=== PATIENT | female | born 1955 | race Caucasian/White ===

== ENCOUNTER → 2016-12-29 | Outpatient (CLI) | payer MEDICAID ==
--- NOTE | 2016-12-29 14:57 | BD ---
EXAMINATION TYPE: MG DEXA axial skeleton. DATE OF EXAM: 12/29/2016 2:46 PM COMPARISON: 09.29.2013 DEXA bone scan. CLINICAL HISTORY: C50.411 BREAST CANCER Z79.890 POST MENOPAUSAL WITH HRT Height: 63.5 Weight: 173 FRAX RISK QUESTIONS: Alcohol (3 or more units per day): NO Family History (Parent hip fracture): NO Glucocorticoids (More than 3mos): YES (Ex: prednisone, prednisolone, methylprednisolone, dexamethasone, and hydrocortisone). History of Fracture in Adulthood: NO Secondary Osteoporosis: NO 1. Type 1 Diabetes: NO 2. Hyperthyroidism: NO 3. Menopause before 45: YES 4. Malnutrition: NO 5. Chronic liver disease: YES, ABNORMAL LIVER FUNCTIONS Rheumatoid Arthritis: NO Current Tobacco Use: YES RISK FACTORS HISTORY OF: Family History of Osteoporosis: NOT SURE Smoke tobacco: YES, 1 PAC WEEKLY Drink Alcohol: SOCIAL Active: YES Diet low in dairy products/other sources of calcium: NO Postmenopausal woman: LATE 30'S Take estrogen and/or progesterone medications: TOOK PREMPRO FOR APPROX. 3-4 YRS...BUT NONE NOW Lost more than 2 inches in height since high school: YES Adrenal Insufficiency: NO MEDICATIONS: Prednisone or other steroids: ZYRTEC D How Long: FOR YRS Additional Medications: HX OF RADIATION, AREMIDIX, CALCIUM WITH VIT D, ATIVAN PRN, Additional History: HX OF RT BREAST CANCER, 7 YRS AGO, ARTHRITIS. EXAM MEASUREMENTS: Bone mineral densitometry was performed using the [employer] System. Bone mineral density as measured about the Lumbar spine is: ----- L1-L4(G/cm2): 1.445 T Score Values are as follows: ----- L1: 1.2 ----- L2: 2.0 ----- L3: 2.7 ----- L4: 2.5 ----- L1-L4: 2.2 Bone mineral density has: Decreased -1.5% since study of: 09.29.2013 Bone mineral density about the R hip (g/cm2): 0.971 Bone mineral density about the L hip (g/cm2): 1.071 T Score values are as follows: -----R Neck: -0.7 -----L Neck: -0.5 -----R Intertrochanter: -0.6 -----L Intertrochanter: 0.3 Bone mineral density has: Decreased -2.4% since study of: 09.29.2013 FRAX %'S: 6.9% CHANCE OF A MAJOR OSTEOPOROTIC FX AND A 0.6% FOR A HIP FX.....PROBABILITY OF FX IN 10 YRS TIME IMPRESSION: Normal (Values between +1 and -1 indicate normal bone mass FOR BOTH OF HER SCANS....BILAT HIPS AND LUMBAR SPINE) NOTE: T-SCORE=SD OF THE YOUNG ADULT MEAN.
== END | disposition home or self-care (01) ==
LOC: RADBDWWP 14:06
PROVIDERS: ATTEND Internal Medicine Hematology & Oncology
DX: Z03.89 Encounter for observation for other suspected diseases and conditions ruled out (principal); C50.411 Malignant neoplasm of upper-outer quadrant of right female breast; N95.1 Menopausal and female climacteric states; Z79.890 Hormone replacement therapy
CPT/HCPCS: 77080

== ENCOUNTER → 2017-02-10 | Outpatient (CLI) | payer MEDICAID ==
[2017-02-10 07:26] LABS: Basophils % (A) 1 %; CH 32.1; CHCM 33.7; Eosinophils # (A) 0.3 k/uL (0-0.7); Eosinophils % (A) 6 %; HCT 44.1 % (34.0-46.0); HDW 2.46; HGB 14.8 gm/dL (11.4-16.0); Luc # (Auto) 0.08; Luc % (Auto) 2; Lymphocytes # (A) 1.5 k/uL (1.0-4.8); Lymphocytes % (A) 31 %; MCH 32.1 pg (25.0-35.0); MCHC 33.5 g/dL (31.0-37.0); MCV 95.7 fL (80.0-100.0); Mean Platelet Volume 7.9; Monocytes # (A) 0.2 k/uL (0-1.0); Monocytes % (A) 5 %; Neutrophils # (A) 2.7 k/uL (1.3-7.7); Neutrophils % (A) 56 %; RBC 4.61 m/uL (3.80-5.40); RDW 12.8 % (11.5-15.5); WBC 4.8 k/uL (3.8-10.6); WBC (Perox) 4.82
[2017-02-10 07:37] LABS: ALT 57 U/L (9-52); AST 39 U/L (14-36); Alkaline Phosphatase 52 U/L (38-126); Anion Gap 7 mmol/L; Blood Urea Nitrogen 23 mg/dL (7-17); Calcium 9.9 mg/dL (8.4-10.2); Carbon Dioxide 29 mmol/L (22-30); Chloride 106 mmol/L (98-107); Cholesterol 198 mg/dL (<200); Glucose 96 mg/dL (74-99); HDL Cholesterol 87 mg/dL (40-60); Non-African American GFR(MDRD) >60 (>60 ml/min/1.73 sqM); Sodium 142 mmol/L (137-145); Total Bilirubin 1.1 mg/dL (0.2-1.3); Total Protein 7.4 g/dL (6.3-8.2); Triglycerides 80 mg/dL (<150)
[2017-02-10 13:00] LABS: Hemoglobin A1C 5.3 % (4.2-6.1)
== END | disposition home or self-care (01) ==
LOC: LABWHC1 06:39
PROVIDERS: ATTEND Family Medicine
DX: Z00.00 Encounter for general adult medical examination without abnormal findings (principal); F41.1 Generalized anxiety disorder; M19.90 Unspecified osteoarthritis, unspecified site
CPT/HCPCS: 36415; 80053; 80061; 83036; 84439; 84443; 85025

== ENCOUNTER → 2017-06-18 | Outpatient (CLI) | payer MEDICAID ==
--- NOTE | 2017-06-19 06:50 | MM ---
Reason for exam: additional evaluation requested from prior study. Last mammogram was performed 1 year ago. History: Patient is postmenopausal, has history of breast cancer at age 53, history of other cancer, and is nulliparous. Family history of breast cancer in paternal aunt. Malignant right breast needle localzation of the right breast, May 11, 2009. Malignant right mammotome panel of the right breast, April 30, 2009. Radiation therapy of the right breast, 2008. Benign stereotactic core biopsy of the left breast, December 24, 1998. Took estrogen for 9 years 2 months beginning at age 44. Took progesterone for 9 years 2 months beginning at age 44. Taking antineoplastic for 8 years beginning at age 53. Physical Findings: Nurse Summary: 1cm nodule in the right breast at 12 o'clock and 11 o'clock at scar (nurse mj). MG 3D Diag Mammo W/Cad DAISY Bilateral CC and MLO view(s) were taken. Prior study comparison: June 03, 2016, bilateral MG 3d diag mammo w/cad DAISY. May 29, 2015, bilateral MG diagnostic mammo w CAD DAISY. The breast tissue is heterogeneously dense. This may lower the sensitivity of mammography. Stable benign calcifications. There is no discrete abnormality including area of concern. Stable lumpectomy changes in the right breast. These results were verbally communicated with the patient and result sheet given to the patient on 06/18/17. ASSESSMENT: Incomplete: need additional imaging evaluation, BI-RAD 0 RECOMMENDATION: Ultrasound of the right breast. Manage patient on a clinical basis.
--- NOTE | 2017-06-19 06:53 | USB ---
Reason for exam: additional evaluation requested from abnormal screening. History: Patient is postmenopausal, has history of breast cancer at age 53, history of other cancer, and is nulliparous. Family history of breast cancer in paternal aunt. Malignant right breast needle localzation of the right breast, May 11, 2009. Malignant right mammotome panel of the right breast, April 30, 2009. Radiation therapy of the right breast, 2008. Benign stereotactic core biopsy of the left breast, December 24, 1998. Took estrogen for 9 years 2 months beginning at age 44. Took progesterone for 9 years 2 months beginning at age 44. Taking antineoplastic for 8 years beginning at age 53. US Breast Limited RT Technologist: Sherita Tate Right breast ultrasound demonstrates a 0.7 x 0.5 x 0.4cm oval, hyperechoic, calcification at BB at 11 o'clock and a 0.4 x 0.2 x 0.4cm oval, cystic lesion at 11 o'clock. These results were verbally communicated with the patient and result sheet given to the patient on 06/18/17. ASSESSMENT: Probably benign, BI-RAD 3 RECOMMENDATION: Ultrasound of the right breast in 6 months. Manage patient on a clinical basis.
== END | disposition home or self-care (01) ==
LOC: RADMAMWWP 14:33
PROVIDERS: ATTEND Internal Medicine Hematology & Oncology
DX: R92.8 Other abnormal and inconclusive findings on diagnostic imaging of breast (principal); Z85.3 Personal history of malignant neoplasm of breast
CPT/HCPCS: 76642; G0204; G0279

== ENCOUNTER → 2017-10-19 | Outpatient (CLI) | payer MEDICAID ==
--- NOTE | 2017-10-19 07:37 | XR ---
EXAMINATION TYPE: XR pelvis AP view DATE OF EXAM: 10/19/2017 COMPARISON: Left hip radiographs 05/30/2010 HISTORY: 62-year-old female with lumbar pain extending down the left leg FINDINGS: Degenerative subarticular sclerosis at both SI joints. There is subchondral sclerosis along the bilat eral acetabular roofs with marginal spurring but relative maintenance of weightbearing hip joint spac e on both sides. No acute fracture or dislocation seen. IMPRESSION: Mild bilateral hip osteoarthrosis. Additional degenerative changes at the SI joints. No acute osseous abnormality seen.
--- NOTE | 2017-10-19 07:40 | XR ---
EXAMINATION TYPE: XR lumbosacral spine min 4V DATE OF EXAM: 10/19/2017 COMPARISON: NONE HISTORY: 62-year-old female lumbar pain extending down the left leg TECHNIQUE: 5 views FINDINGS: 5 lumbar type vertebral bodies. No pars interarticularis defect seen. Marked hypertrophic facet arthropathy throughout the lumbar spine. There is trace grade 1 anterolisth esis at L4-L5. Otherwise, alignment is maintained and vertebral body heights are preserved. Mild disc interspace narrowing at various levels with a endplate spondylosis greatest at T11-T12 and L2-L3. IMPRESSION: 1. Prominent hypertrophic facet arthropathy throughout. Trace grade 1 anterolisthesis at L4-L5. 2. Mild to moderate degenerative disc disease.
== END | disposition home or self-care (01) ==
LOC: RADXRMAIN 06:41
PROVIDERS: ATTEND Orthopaedic Surgery Orthopaedic Surgery of the Spine
DX: M43.16 Spondylolisthesis, lumbar region (principal); M51.36 Other intervertebral disc degeneration, lumbar region; M46.96 Unspecified inflammatory spondylopathy, lumbar region; M16.0 Bilateral primary osteoarthritis of hip; M53.3 Sacrococcygeal disorders, not elsewhere classified
CPT/HCPCS: 72110; 72170

== ENCOUNTER → 2017-10-29 | Outpatient (CLI) | payer MEDICAID ==
--- NOTE | 2017-10-29 08:36 | MR ---
EXAMINATION TYPE: MR lumbar spine wo con DATE OF EXAM: 10/29/2017 COMPARISON: Plain film 10/19/2017 HISTORY: Low back pain / Radiculopathy TECHNIQUE: Multiplanar, multisequence images of the lumbar spine were acquired. L1-L2: There are facet arthropathy changes. No evident disc herniation or significant foraminal encro achment. L2-L3: Posterior broad-based disc bulge causes mild anterior mass effect on the thecal sac. Facet art hropathy with hypertrophy ligamentum flavum encroaches on the lateral recesses. No significant centra l canal stenosis. Right pedicle of L2 shows a focus of intermediate signal which is indeterminate marisol suring approximately 11 mm. L3-L4: Hypertrophic changes of the facet results in a trefoil appearance of the thecal sac resulting in moderate to severe central canal stenosis, there is no significant foraminal encroachment. Posteri or broad-based disc bulge contributes to cause the spinal stenosis and is somewhat eccentric towards the left. L4-L5: Facet arthropathy with hypertrophy ligamentum flavum encroaches on the lateral recesses. No si gnificant central stenosis or foraminal encroachment. Minimal posterior broad-based disc bulge causes only slight anterior mass effect on the thecal sac. L5-S1: Facet arthropathy with hypertrophy of the ligamentum flavum noted. No significant central fabio l stenosis, foraminal encroachment, there is a minimal posterior broad-based disc bulge causes only s light anterior mass effect on the thecal sac. Lumbar segments are intact. No paraspinal masses are identified. Conus medullaris has a normal appe arance. There is no spondylolysis. Lumbar vertebral bodies show preserved height. Minimal anterolisth esis grade 1 L4-5. Loss of disc height and signal at the intervertebral levels especially at L2-3, L3 -4, L4-5, there is endplate discogenic marrow signal change. IMPRESSION: Degenerative disc disease, facet arthropathy, spinal stenosis greatest at L3-4. Indeterminate signal posterior vertebral body towards the right pedicle L2, bone scan or contrast-enhanced exam may be of benefit for further evaluation, follow-up suggested.
== END | disposition home or self-care (01) ==
LOC: RADMRIMAIN 07:02
PROVIDERS: ATTEND Orthopaedic Surgery Orthopaedic Surgery of the Spine
DX: M48.061 Spinal stenosis, lumbar region without neurogenic claudication (principal); M51.16 Intervertebral disc disorders with radiculopathy, lumbar region; M46.96 Unspecified inflammatory spondylopathy, lumbar region; M47.26 Other spondylosis with radiculopathy, lumbar region; M43.16 Spondylolisthesis, lumbar region; M53.3 Sacrococcygeal disorders, not elsewhere classified
CPT/HCPCS: 72148

== ENCOUNTER → 2017-11-10 | Outpatient (CLI) | payer MEDICAID ==
[2017-11-10 11:33] VITALS: BP 142/88; PULSE 70; RESP 18
--- NOTE | 2017-11-10 12:41 | P.HPIM ---
History of Present Illness H&P Date: 11/10/17 Chief Complaint: low back and LLE pain This is a 62-year-old patient referred by Dr. Mcclain for chronic pain in low back and LLE. Patient has been taking medications from primary care physician including [place] and Motrin medications with some relief. Patient denies adverse drug effects from medications. Patient also denies new-onset weakness, bowel/bladder incontinence, or any other signs or symptoms of cauda equina syndrome. There are no signs of acute intoxication, and no indications of medication diversion or overuse. Patient notes that pain worsens significantly with walking and sitting for extended periods of time and improves with standing, and medication. Patient has used several types of medications for pain, including NSAIDS, OPIOIDS, TRAMADOL. Patient HAS NOT had surgery. Patient HAS NOT had injections previously. Patient HAS had physical therapy recently. In addition to above, 13-point review of systems is also negative for chest pain , shortness of breath, changes in vision, changes in hearing, new onset weakness , abdominal pain, diarrhea, extreme fatigue, malaise, fever, skin changes, homicidal or suicidal ideation, or bowel or bladder incontinence. Vital Signs: Reviewed in EMR Gen: WDWN, AAOx3, NAD HEENT: NCAT, EOMI, hearing grossly normal Pulm: resp unlabored Abd: soft, NT, ND Neck: supple, trachea midline ROM in flexion lumbar spine: reduced ROM in extension lumbar spine: reduced Lumbar paravertebral tenderness: + Facet loading: + L >> R SI joint tenderness: mild + L side Donald's test: neg Straight leg raise: + LLE Neuro: CN II-XII grossly intact, muscle strength lower extremities PRESERVED Past Medical History Past Medical History: Cancer, Osteoarthritis (OA) Additional Past Medical History / Comment(s): rt breast ca radiation tx History of Any Multi-Drug Resistant Organisms: None Reported Additional Past Surgical History / Comment(s): lt shoulder repair,rt breast lumpectomy-later hematoma removed,rt carpel tunnel Past Anesthesia/Blood Transfusion Reactions: No Reported Reaction Past Psychological History: Anxiety Smoking Status: Current every day smoker Past Alcohol Use History: Occasional Additional Past Alcohol Use History / Comment(s): smokes approx 8 cigarettes per week, started smoking at 17 Past Drug Use History: None Reported - Past Family History Mother Family Medical History: Cancer, Diabetes Mellitus Father Family Medical History: Congestive Heart Failure (CHF) Additional Family Medical History / Comment(s): heart problems Medications and Allergies Home Medications Medication Instructions Recorded Confirmed Type Anastrozole [Arimidex] 1 mg PO DAILY 06/09/16 11/10/17 History Calcium Carbonate/Vitamin D3 1 each PO DAILY 06/09/16 11/10/17 History [Calcium 600-Vit D3 800 Tab] Cetirizine HCl/Pseudoephedrine 1 each PO DAILY 06/09/16 11/10/17 History [Zyrtec-D Tablet] LORazepam [Lorazepam] 1 mg PO BID PRN 06/09/16 11/10/17 History HYDROcodone/APAP 7.5-325MG [[place] 1 tab PO Q6H 11/10/17 11/10/17 History 7.5-325] traMADol HCl [Ultram] 1 tab PO TID 11/10/17 11/10/17 History Allergies Allergy/AdvReac Type Severity Reaction Status Date / Time codeine AdvReac Nausea Verified 11/10/17 11:22 Physical Exam Vitals: Vital Signs Pulse Resp BP Pulse Ox 11/10/17 11:26 70 18 142/88 99 Intake and Output 11/09/17 11/10/17 11/10/17 22:59 06:59 14:59 Other: Weight 171 kg Patient Weight 11/11/17 06:59 Weight 171 kg Results Comments: MRI lumbar spine without contrast demonstrates a posterior broad-based disc bulge at the L2-L3 level causing mild anterior mass effect on the thecal sac. There is facet arthropathy with hypertrophy and ligamentum flavum encroaching on the lateral recesses. The L3-L4 level there are hypertrophic changes of the facet resulting in a tree for repairs with thecal sac resulting in moderate to severe central canal stenosis with no significant foraminal encroachment. There is a posterior broad-based disc bulge contributing to cause spinal stenosis that is eccentric somewhat was a left. At the L4-L5 level there is a facet arthropathy with ligamentum flavum encroaching on the lateral recesses. At the L5-S1 level there is facet arthropathy with hypertrophy of ligamentum flavum noted. There is also an object of indeterminate signal posterior vertebral body towards the right pedicle of L2 thus measuring approximately 11 mm. Assessment and Plan (1) Lumbar spinal stenosis Current Visit: Yes Status: Chronic Code(s): M48.061 - SPINAL STENOSIS, LUMBAR REGION WITHOUT NEUROGENIC CODIE SNOMED Code(s): 41628493 (2) Lumbar spondylosis with myelopathy Current Visit: Yes Status: Chronic Code(s): M47.16 - OTHER SPONDYLOSIS WITH MYELOPATHY, LUMBAR REGION SNOMED Code(s): 43495031 (3) History of breast cancer Current Visit: Yes Status: Chronic Code(s): Z85.3 - PERSONAL HISTORY OF MALIGNANT NEOPLASM OF BREAST SNOMED Code(s): 895905434 Plan: 1. Explanation: Opioid and psychological risk scores were reviewed. Diagnoses , prognoses, and multiple treatment options including but not limited to physical therapy, interventional therapies, adjuvant medical therapies, narcotic medication therapies, and surgery were discussed with the patient and all questions were answered to the patient's satisfaction. 2. Opioid agreement: no opioids prescribed today 3. Counseling: The patient was counseled extensively on SMOKING CESSATION, BODY MASS INDEX, EXERCISE. Specifically, the patient was instructed regarding the importance of smoking cessation, weight control, and exercise in the context of both chronic pain and overall health. 4. Procedures: LESI series, L3-L4 if possible; consider lumbar MBB if limited relief 5. Consultations: none at this time 6. Investigations: none 7. Medications: none prescribed 8. Disposition: f/u for procedure as scheduled PQRS measures: 1-Patient's medications are documented in the chart. 2-Tobacco use is positive, counseling given 3-Patient has not had a pneumococcal vaccine. 4-Advanced care planning discussed, patient unable to give. 5-Opioid contract NOT signed with the patient. 6-Pain positive, follow-up visit or procedure scheduled 7-Patient's blood pressure measured and documented, and patient will follow up with the primary care due to hypertension. 8-Patient's weight was measured, and body mass index ABOVE the normal limits, and counseling was done. Patient instructed to follow up with PCP. 9-Patient WAS NOT identified as an unhealthy alcohol user. Time with Patient: Greater than 30
== END ==
LOC: PNWHC3 11:15
DX: G89.29 Other chronic pain (principal); M48.061 Spinal stenosis, lumbar region without neurogenic claudication; M47.16 Other spondylosis with myelopathy, lumbar region; F17.209 Nicotine dependence, unspecified, with unspecified nicotine-induced disorders; Z85.3 Personal history of malignant neoplasm of breast; Z88.5 Allergy status to narcotic agent; Z79.891 Long term (current) use of opiate analgesic; Z79.899 Other long term (current) drug therapy; Z88.6 Allergy status to analgesic agent; Z88.8 Allergy status to other drugs, medicaments and biological substances
CPT/HCPCS: 99211

== ENCOUNTER 2017-11-11 09:01 | Day surgery (SDC) | payer MEDICAID ==
[~2017-11-11 09:01] MED LIST: LACTATED RINGERS 1,000 ML IV ONE
[2017-11-11 09:55] VITALS: RESP 16; TEMP 97.8
[2017-11-11] MEDS ORDERED: LIDOCAINE 1% 20 ML VIAL (10MG/ML) FOR IV START INTRADERMA ONE (10:01)
--- NOTE | 2017-11-11 10:26 | P.PCN ---
Date of Procedure: 11/11/17 Procedure(s) Performed: PREOPERATIVE DIAGNOSIS: 1- Lumbar Degenerative Disc Diseases 2-Lumbar spondylosis with Facet arthropathy without myelopathy. 3-lumbar spinal stenosis. POSTOPERATIVE DIAGNOSIS: 1-Lumber Degenerative Disc Diseases 2-Lumbar spondylosis with Facet arthropathy without myelopathy. 3-lumbar spinal stenosis. PROCEDURE 1. Lumbar epidural steroid injection under fluoroscopic guidance at the L3-4 level. 2. Lumbar epidurogram. ANESTHESIA: Local with 1% lidocaine 3 ml and , moderate sedation with intravenous Versed 2 mg ,and fentanyle 100 Mcg EBL: Minimal PROCEDURE INDICATION: The patient with low back pain and radiculitis symptoms unresponsive to conservative treatment. Fluoroscopy was used to optimize visualization of the needle placement and to maximize safety. PROCEDURE DESCRIPTION / TECHNIQUE: The patient was seen and identified in the preoperative area. Risks, benefits , complications including but not limited to infections ,bleeding ,allergic reaction to the medications ,nerve damage and not complete pain releife , and alternatives were discussed with the patient. The patient agreed to proceed with the procedure and signed the consent. IV was started, and vital signs were stable. Patient was taken to the OR and time out was completed. The patient was placed in the prone position on procedure table and a pillow was placed under the abdomen to reduce lumbar lordosis. The lumbosacral area was prepped and draped in the usual sterile fashion.ere closely monitored during the procedure. Conscious sedation was used during the procedure to decrease patients anxiety. Vital signs was monitered during the entire procedure. Using anterior-posterior fluoroscopy, the L3-4 interlaminar space was identified and the skin over this site was marked and then infiltrated with 1% lidocaine subcutaneously. Subsequently, a 20-gauge Tuohy epidural needle was inserted and advanced toward the epidural space using the ``Loss of resistance technique and guided by AP and lateral fluoroscopy. The correct needle position in the epidural space was verified with the injection of 2 mL of the water soluble contrast dye Omnipaque 180 contrast and observing an excellent epidurogram with the epidural spread of the dye, after negative aspiration for blood and CSF and in the absence of paresthesias. Again after negative aspiration, a 6 ml mixture containing 80 mg Kenalog , and 2 ml of preservative free Normal Saline, and 2 ml of preservative free lidocaine 1% solution was injected and a washout of epidurogram was seen. Needle was withdrawn intact, skin was cleansed, and bandages were applied. COMPLICATIONS: None DISPOSITION / PLANS: The patient was placed in a supine position and transferred to the recovery area in a stable condition for observation. There was no evidence of lower extremity motor or sensory deficit after the procedure. Patient was discharged from the recovery room after meeting discharge criteria. Home discharge instructions were given to the patient by the staff. The patient was reexamined prior to discharge. The patient will schedule a follow up in the clinic in 2-4 weeks.
[2017-11-11] MEDS ORDERED: IV FLUID CONTINUATION 1,000 ML IV ONE (10:31)
[2017-11-11 10:47] VITALS: PULSE 60
[2017-11-11 11:01] VITALS: BP 152/92
--- NOTE | 2017-11-11 11:19 | FL ---
Fluoroscopy INDICATION: Pain FINDINGS: Fluoroscopy time: 8 seconds. Images obtained: 1. IMPRESSIONS: 1. Documentation of fluoroscopy.
== END 2017-11-11 11:34 | disposition home or self-care (01) ==
LOC: ORPAIN 09:01
PROVIDERS: ATTEND Specialist
DX: G89.29 Other chronic pain (principal); M47.26 Other spondylosis with radiculopathy, lumbar region; M51.16 Intervertebral disc disorders with radiculopathy, lumbar region; M48.061 Spinal stenosis, lumbar region without neurogenic claudication; F41.9 Anxiety disorder, unspecified; F17.210 Nicotine dependence, cigarettes, uncomplicated; M19.90 Unspecified osteoarthritis, unspecified site; Z79.1 Long term (current) use of non-steroidal anti-inflammatories (NSAID); Z79.891 Long term (current) use of opiate analgesic; Z85.3 Personal history of malignant neoplasm of breast; Z79.811 Long term (current) use of aromatase inhibitors; Z88.5 Allergy status to narcotic agent; Z79.899 Other long term (current) drug therapy
CPT/HCPCS: 62323; J2250; J3301; Q9965; J3010

== ENCOUNTER → 2017-11-13 | Outpatient (CLI) | payer MEDICAID ==
--- NOTE | 2017-11-13 16:13 | NM ---
EXAMINATION TYPE: NM bone scan whole body DATE OF EXAM: 11/13/2017 COMPARISON: NONE HISTORY: Low back pain for 2 months with fall approximately 2 months ago. History of breast cancer 8 years ago and known arthritis. Prior shoulder surgery 1.5 years ago on the left. Delayed whole-body scanning was performed following the injection of 24.8 mCi Tc 99m MDP. Images acq uired 3 hours post injection. FINDINGS: Slight increased uptake in the area of the pedicle of the L5 vertebral body on the right is symmetric to the left and oblique images and thought to represent slight patient rotation. Degenerative change s of the axial and appendicular skeleton are seen is symmetric uptake within the thoracic spine, sacr oiliac joints, within the humeral joints, acromioclavicular joints, sternum, knees, wrists, and metat arsals as well as ankles. Focal increased area of uptake within the left jaw is also incidentally not ed. IMPRESSION: 1. No focal uptake within the indeterminant area of signal seen on the prior MRI near the pedicle of L2. Therefore this focal area is felt to represent a benign bone island on MRI with no current scinti graphic evidence of metastatic disease. 2. Focal area of uptake within the left jaw. Correlate for dental disease. Alternatively radiographs could be performed. 3. Degenerative changes of the axial and appendicular skeleton.
== END | disposition home or self-care (01) ==
LOC: RADNMMAIN 10:58
PROVIDERS: ATTEND Internal Medicine Hematology & Oncology
DX: C50.411 Malignant neoplasm of upper-outer quadrant of right female breast (principal); Z88.5 Allergy status to narcotic agent
CPT/HCPCS: 78306; A9503

== ENCOUNTER 2017-12-01 08:58 | Day surgery (SDC) | payer MEDICAID ==
[2017-11-30 11:35] VITALS: BMI 27.6
[2017-12-01 09:43] VITALS: RESP 18; TEMP 98.8
[2017-12-01] MEDS ORDERED: LACTATED RINGERS 1,000 ML IV ONE (09:55)
[2017-12-01] MEDS ORDERED: LIDOCAINE 1% 20 ML VIAL (10MG/ML) FOR IV START INTRADERMA ONE (09:55)
[2017-12-01] MEDS ORDERED: LACTATED RINGERS 1,000 ML IV SCH (10:00)
--- NOTE | 2017-12-01 10:29 | P.PCN ---
Date of Procedure: 12/01/17 Surgeon: Tony Barrett Pathology: none sent Condition: stable Disposition: PACU Description of Procedure: PREOPERATIVE DIAGNOSIS: 1-Lumbar radiculitis. POSTOPERATIVE DIAGNOSIS: 1-Lumbar radiculitis. PROCEDURE 1. Lumbar epidural steroid injection under fluoroscopic guidance at the L3-L4 level. 2. Lumbar epidurogram. ANESTHESIA: Local with 1% lidocaine; IV sedation with Versed/fentanyl. EBL: Minimal PROCEDURE INDICATION: The patient with low back pain and radiculitis symptoms unresponsive to conservative treatment. Fluoroscopy was used to optimize visualization of the needle placement and to maximize safety. Nouse of blood thinners. PROCEDURE DESCRIPTION / TECHNIQUE: The patient was seen and identified in the preoperative area. Risks, benefits, complications, and alternatives were discussed with the patient, including but not limited to bleeding, infection, nerve damage, allergic reactions to medications, and incomplete pain relief. The patient agreed to proceed with the procedure and signed the consent after all questions were answered. IV was started, and vital signs were stable. Patient was taken to the OR and time out was completed to confirm patient position, procedure, laterality of pain, and allergies. The patient was placed in the prone position on procedure table and a pillow was placed under the abdomen to reduce lumbar lordosis. The lumbosacral area was prepped and draped in the usual sterile fashion. Critical pause was taken. Vital signs were closely monitored during the procedure. Conscious sedation was used during the procedure to decrease patients anxiety. Using anterior-posterior fluoroscopy, the L5-S1 interlaminar space was identified and the skin over this site was marked and then infiltrated with 1% lidocaine subcutaneously. Subsequently, a 20-gauge 3.5-inch Tuohy epidural needle was inserted and advanced toward the epidural space using the Loss of resistance technique and guided by AP and lateral fluoroscopy. The correct needle position in the epidural space was verified with the injection of 2 mL of the water soluble contrast dye Isovue 200 contrast and observing an excellent epidurogram with the epidural spread of the dye, after negative aspiration for blood and CSF and in the absence of paresthesias. Again after negative aspiration, a 6 ml mixture containing 40 mg of Depo Medrol and 3 ml of preservative free Normal Saline, and 2 ml of preservative free lidocaine 1% solution was injected and a washout of epidurogram was seen. Needle was withdrawn intact, skin was cleansed, and bandages were applied. COMPLICATIONS: None COMMENTS: DISPOSITION / PLANS: The patient was placed in a supine position and transferred to the recovery area in a stable condition for observation. There was no evidence of lower extremity motor or sensory deficit after the procedure. Patient was discharged from the recovery room after meeting discharge criteria. Home discharge instructions were given to the patient by the staff. The patient was reexamined prior to discharge and there were no issues. The patient will schedule a third LESI in 6-8 weeks as she has had excellent relief from first procedure done three weeks ago.
[2017-12-01] MEDS ORDERED: IV FLUID CONTINUATION 1,000 ML IV ONE (10:32)
[2017-12-01 10:55] VITALS: BP 162/88; PULSE 61
--- NOTE | 2017-12-01 11:39 | FL ---
Fluoroscopy HISTORY: Pain 6 seconds fluoroscopy time supplied to the referring clinician. 3 intraoperative C-arm images docume nt the procedure. See dictated report from anesthesia.
== END 2017-12-01 11:05 | disposition home or self-care (01) ==
LOC: ORPAIN 08:58
PROVIDERS: ATTEND Anesthesiology
DX: G89.29 Other chronic pain (principal); M48.061 Spinal stenosis, lumbar region without neurogenic claudication; M47.16 Other spondylosis with myelopathy, lumbar region; M51.16 Intervertebral disc disorders with radiculopathy, lumbar region; Z85.3 Personal history of malignant neoplasm of breast; Z92.3 Personal history of irradiation; M19.90 Unspecified osteoarthritis, unspecified site; F41.9 Anxiety disorder, unspecified; F17.210 Nicotine dependence, cigarettes, uncomplicated; Z79.1 Long term (current) use of non-steroidal anti-inflammatories (NSAID); Z79.891 Long term (current) use of opiate analgesic; Z79.899 Other long term (current) drug therapy; Z88.5 Allergy status to narcotic agent
CPT/HCPCS: 62323; J2250; J1030; J3010; Q9966

== ENCOUNTER 2018-01-05 07:04 | Day surgery (SDC) | payer MEDICAID ==
[2017-12-31 08:36] VITALS: BMI 27.6
[~2018-01-05 07:04] MED LIST changes: -LACTATED RINGERS 1,000 ML IV ONE; +LACTATED RINGERS 1,000 ML IV SCH
[2018-01-05] MEDS ORDERED: LIDOCAINE 1% 20 ML VIAL (10MG/ML) FOR IV START INTRADERMA ONE (07:56)
[2018-01-05 08:10] VITALS: TEMP 98
--- NOTE | 2018-01-05 09:06 | P.PCN ---
Date of Procedure: 01/05/18 Procedure(s) Performed: PREOPERATIVE DIAGNOSIS: 1- Lumbar Degenerative Disc Diseases 2-Lumbar spondylosis with Facet arthropathy without myelopathy. 3-lumbar spinal stenosis. POSTOPERATIVE DIAGNOSIS: 1-Lumber Degenerative Disc Diseases 2-Lumbar spondylosis with Facet arthropathy without myelopathy. 3-lumbar spinal stenosis PROCEDURE 1. Lumbar epidural steroid injection under fluoroscopic guidance at the L3-4 level. 2. Lumbar epidurogram. ANESTHESIA: Local with 1% lidocaine 3 ml and , moderate sedation with intravenous Versed 2 mg ,and fentanyle 100 Mcg EBL: Minimal PROCEDURE INDICATION: The patient with low back pain and radiculitis symptoms unresponsive to conservative treatment. Fluoroscopy was used to optimize visualization of the needle placement and to maximize safety. PROCEDURE DESCRIPTION / TECHNIQUE: The patient was seen and identified in the preoperative area. Risks, benefits , complications including but not limited to infections ,bleeding ,allergic reaction to the medications ,nerve damage and not complete pain releife , and alternatives were discussed with the patient. The patient agreed to proceed with the procedure and signed the consent. IV was started, and vital signs were stable. Patient was taken to the OR and time out was completed. The patient was placed in the prone position on procedure table and a pillow was placed under the abdomen to reduce lumbar lordosis. The lumbosacral area was prepped and draped in the usual sterile fashion.ere closely monitored during the procedure. Conscious sedation was used during the procedure to decrease patients anxiety. Vital signs was monitered during the entire procedure. Using anterior-posterior fluoroscopy, the L3-4 interlaminar space was identified and the skin over this site was marked and then infiltrated with 1% lidocaine subcutaneously. Subsequently, a 20-gauge Tuohy epidural needle was inserted and advanced toward the epidural space using the ``Loss of resistance technique and guided by AP and lateral fluoroscopy. The correct needle position in the epidural space was verified with the injection of 2 mL of the water soluble contrast dye Isovue 200 contrast and observing an excellent epidurogram with the epidural spread of the dye, after negative aspiration for blood and CSF and in the absence of paresthesias. Again after negative aspiration, a 6 ml mixture containing 20 mg of Dexamethasone and 2 ml of preservative free Normal Saline, and 2 ml of preservative free lidocaine 1% solution was injected and a washout of epidurogram was seen. Needle was withdrawn intact, skin was cleansed, and bandages were applied. COMPLICATIONS: None DISPOSITION / PLANS: The patient was placed in a supine position and transferred to the recovery area in a stable condition for observation. There was no evidence of lower extremity motor or sensory deficit after the procedure. Patient was discharged from the recovery room after meeting discharge criteria. Home discharge instructions were given to the patient by the staff. The patient was reexamined prior to discharge. The patient will schedule a follow up in the clinic in 2-4 weeks.
--- NOTE | 2018-01-05 09:16 | FL ---
EXAMINATION TYPE: FL guided pain mgmt statistic DATE OF EXAM: 01/05/2018 CLINICAL HISTORY: Low back pain. TECHNIQUE: Fluoroscopy. COMPARISON: None. FINDINGS: Fluoroscopic guidance was provided during pain relief procedure performed by Dr. Mcmillan . A total of 1 sac and of fluoroscopic time is utilized during the procedure and single spot fluoros copic image is acquired. Single image acquired shows needle localization at superior L4 level. IMPRESSION: As Above.
[2018-01-05] MEDS ORDERED: IV FLUID CONTINUATION 800 ML IV ONE (09:22)
[2018-01-05 09:30] VITALS: BP 175/95; PULSE 59; RESP 18
== END 2018-01-05 09:59 | disposition home or self-care (01) ==
LOC: ORPAIN 07:04
PROVIDERS: ATTEND Specialist
DX: M48.061 Spinal stenosis, lumbar region without neurogenic claudication (principal); M51.16 Intervertebral disc disorders with radiculopathy, lumbar region; M47.26 Other spondylosis with radiculopathy, lumbar region; F17.200 Nicotine dependence, unspecified, uncomplicated; Z88.5 Allergy status to narcotic agent
CPT/HCPCS: 62323; J2250; J1100; J3010; Q9966

== ENCOUNTER → 2018-01-06 | Outpatient (CLI) | payer MEDICAID ==
--- NOTE | 2018-01-07 08:30 | USB ---
Reason for exam: follow-up at short interval from prior study. History: Patient is postmenopausal, has history of breast cancer at age 53, history of other cancer, and is nulliparous. Family history of breast cancer in paternal aunt. Malignant right breast needle localzation of the right breast, May 11, 2009. Malignant right mammotome panel of the right breast, April 30, 2009. Radiation therapy of the right breast, 2008. Benign stereotactic core biopsy of the left breast, December 24, 1998. Took estrogen for 9 years 2 months beginning at age 44. Took progesterone for 9 years 2 months beginning at age 44. Taking antineoplastic for 8 years beginning at age 53. Physical Findings: Nurse Summary: scar with nodules, 12 o'clock 0.5cm, moves (nurse dw). US Breast RT Right breast ultrasound includes all four quadrants, the retroareolar region and axilla. Finding demonstrates a 4 x 3 x 4mm oval, cystic lesion at 11 o'clock, unchanged from previous, versus 4 x 2 x 4mm, benign and two oval calcifications at 11 o'clock measuring 4mm and 5mm, associated with a large area of shadowing that was not seen previously possibly imaged differently. These results were verbally communicated with the patient and result sheet given to the patient on 01/06/18. ASSESSMENT: Incomplete: need additional imaging evaluation, BI-RAD 0 RECOMMENDATION: Special view mammogram of the right breast. (Patient was unable to stay for right mammogram as recommended by the radiologist, patient will return at a later date for mammogram, patient will call to schedule)
== END | disposition home or self-care (01) ==
LOC: RADUSWWP 14:20
PROVIDERS: ATTEND Internal Medicine Hematology & Oncology
DX: R92.8 Other abnormal and inconclusive findings on diagnostic imaging of breast (principal); Z85.3 Personal history of malignant neoplasm of breast

== ENCOUNTER → 2018-01-22 | Outpatient (CLI) | payer MEDICAID ==
--- NOTE | 2018-01-25 08:37 | MM ---
Reason for exam: additional evaluation requested from prior study. Last mammogram was performed 7 months ago. History: Patient is postmenopausal, has history of breast cancer at age 53, history of other cancer, and is nulliparous. Family history of breast cancer in paternal aunt. Malignant right breast needle localzation of the right breast, May 11, 2009. Malignant right mammotome panel of the right breast, April 30, 2009. Radiation therapy of the right breast, 2008. Benign stereotactic core biopsy of the left breast, December 24, 1998. Took estrogen for 9 years 2 months beginning at age 44. Took progesterone for 9 years 2 months beginning at age 44. Taking antineoplastic for 8 years beginning at age 53. MG Diagnostic Mammo w CAD DAISY Bilateral CC and MLO view(s) were taken. Prior study comparison: June 18, 2017, bilateral MG 3d diag mammo w/cad DAISY. June 03, 2016, bilateral MG 3d diag mammo w/cad DAISY. The breast tissue is heterogeneously dense. This may lower the sensitivity of mammography. Right upper outer quadrant therapy change. No suspicious abnormality on right or left. Stable left upper outer quadrant focal asymmetry back to 2012. These results were verbally communicated with the patient and result sheet given to the patient on 01/22/18. ASSESSMENT: Benign, BI-RAD 2 RECOMMENDATION: Routine screening mammogram of both breasts in 1 year.
== END | disposition home or self-care (01) ==
LOC: RADMAMWWP 14:00
PROVIDERS: ATTEND Internal Medicine Hematology & Oncology
DX: R92.8 Other abnormal and inconclusive findings on diagnostic imaging of breast (principal); Z85.3 Personal history of malignant neoplasm of breast
CPT/HCPCS: 77066

== ENCOUNTER → 2018-03-09 | Outpatient (CLI) | payer MEDICAID ==
[2018-03-09 07:37] LABS: HCT 43.5 % (34.0-46.0); HGB 14.5 gm/dL (11.4-16.0); MCH 31.2 pg (25.0-35.0); MCHC 33.3 g/dL (31.0-37.0); MCV 93.8 fL (80.0-100.0); Mean Platelet Volume 7.2; Platelet Count 169 k/uL (150-450); RBC 4.64 m/uL (3.80-5.40); RDW 12.3 % (11.5-15.5)
[2018-03-09 07:49] LABS: ALT 69 U/L (9-52); AST 46 U/L (14-36); Albumin 4.2 g/dL (3.5-5.0); Alkaline Phosphatase 52 U/L (38-126); Anion Gap 9 mmol/L; Blood Urea Nitrogen 29 mg/dL (7-17); Calcium 10.1 mg/dL (8.4-10.2); Carbon Dioxide 28 mmol/L (22-30); Chloride 104 mmol/L (98-107); Cholesterol 183 mg/dL (<200); Glucose 83 mg/dL (74-99); HDL Cholesterol 72 mg/dL (40-60); LDL Cholesterol,Calculated 96 mg/dL (0-99); Potassium 4.2 mmol/L (3.5-5.1); Sodium 141 mmol/L (137-145); Total Bilirubin 0.8 mg/dL (0.2-1.3); Total Protein 6.6 g/dL (6.3-8.2); Triglycerides 76 mg/dL (<150)
[2018-03-09 07:55] LABS: Appearance,Urine Clear (Clear); Bacteria,Urine Rare /hpf; Bilirubin,Urine Negative (Negative); Blood,Urine Negative (Negative); Color,Urine Yellow; Glucose,Urine (UA) Negative (Negative); Ketones,Urine Negative (Negative); Leukocyte Esterase,Urine Large (Negative); Mucus,Urine Few /hpf; Nitrite,Urine Negative (Negative); PH, Urine 5.5 (5.0-8.0); Protein,Urine Trace (Negative); RBC,Urine 1 /hpf (0-5); Specific Gravity,Urine 1.029 (1.001-1.035); Squamous Epithelial Cell,Urine 2 /hpf (0-4); Urobilinogen,Urine <2.0 mg/dL (<2.0); WBC,Urine 3 /hpf (0-5)
[2018-03-09 08:05] LABS: T4, Free (Free Thyroxine) 1.25 ng/dL (0.78-2.19)
== END | disposition home or self-care (01) ==
LOC: LABWHC1 06:35
PROVIDERS: ATTEND Family Medicine
DX: Z00.00 Encounter for general adult medical examination without abnormal findings (principal); N39.0 Urinary tract infection, site not specified; B19.20 Unspecified viral hepatitis C without hepatic coma
CPT/HCPCS: 36415; 80053; 80061; 81001; 83036; 84439; 84443; 85027; 87522

== ENCOUNTER → 2018-07-14 | Outpatient (CLI) | payer MEDICAID ==
[2018-07-14 18:31] LABS: Urine Alcohol Negative (Negative); Urine Barbiturate Negative (Negative); Urine Cocaine Negative (Negative); Urine Methadone Negative (Negative); Urine Opiates Negative (Negative); Urine Phencyclidine Negative (Negative)
== END | disposition home or self-care (01) ==
LOC: LABWHC1 06:47
PROVIDERS: ATTEND Internal Medicine Gastroenterology
DX: K75.9 Inflammatory liver disease, unspecified (principal)
CPT/HCPCS: 36415; 80306; 80320

== ENCOUNTER → 2018-07-16 | Outpatient (CLI) | payer MEDICAID ==
--- NOTE | 2018-07-16 16:18 | CT ---
EXAMINATION TYPE: CT abdomen wo/w con DATE OF EXAM: 07/16/2018 COMPARISON: None HISTORY: abdominal mass CT DLP: 1483.1 mGycm CONTRAST: CT scan of the abdomen is performed with Oral Contrast and thousand and with IV Contrast, patient in jected with 120 mL of Isovue 300. FINDINGS: LUNG BASES-: No visible nodule. No infiltrate. LIVER/GB: No calcified gallstones. No space occupying hepatic lesion. Biliary tree is of normal ca liber. PANCREAS: No inflammation. No distinct mass. SPLEEN: No splenic enlargement. No lesion seen. ADRENALS: Right adrenal nodule measuring 3.1 x 2.3 cm. Precontrast Hounsfield unit of -13 with postco ntrast Hounsfield unit of 32 and delayed Hounsfield unit measurement of 15. Findings are compatible w ith adenoma. No left adrenal nodule or mass seen. KIDNEYS/BLADDER: No hydronephrosis. No nephrolithiasis. No distinct renal mass. Urinary bladder g rossly unremarkable. BOWEL: Normal appendix. Normal bowel caliber. No inflammation. LYMPH NODES: No greater than 1cm abdominal or pelvic lymph nodes are appreciated. AORTA: No significant abnormality. OSSEOUS STRUCTURES: No significant abnormality is seen. OTHER: No significant additional abnormality is seen. IMPRESSION: 1. Right adrenal adenoma. No evidence for hepatic mass.
== END ==
LOC: RADCTMAIN 14:35
PROVIDERS: ATTEND Internal Medicine Gastroenterology
DX: D35.01 Benign neoplasm of right adrenal gland (principal)
CPT/HCPCS: 74170; Q9967

== ENCOUNTER → 2018-11-13 | Outpatient (CLI) | payer MEDICAID ==
[2018-11-13 11:00] LABS: Eosinophils % (A) 4 %; HCT 44.8 % (34.0-46.0); HGB 14.4 gm/dL (11.4-16.0); Lymphocytes % (A) 27 %; MCH 30.5 pg (25.0-35.0); MCHC 32.2 g/dL (31.0-37.0); MCV 94.7 fL (80.0-100.0); Mean Platelet Volume 6.9; Monocytes % (A) 4 %; Neutrophils % (A) 63 %; Platelet Count 205 k/uL (150-450); RBC 4.74 m/uL (3.80-5.40); RDW 12.5 % (11.5-15.5); WBC 5.1 k/uL (3.8-10.6)
[2018-11-13 11:01] LABS: Basophils % (A) 1 %; Eosinophils # (A) 0.2 k/uL (0-0.7); Lymphocytes # (A) 1.4 k/uL (1.0-4.8); Monocytes # (A) 0.2 k/uL (0-1.0); Neutrophils # (A) 3.2 k/uL (1.3-7.7)
[2018-11-13 11:07] LABS: INR 0.9 (<1.2); Partial Thromboplastin Time 25.4 sec (22.0-30.0); Prothrombin Time 9.8 sec (9.0-12.0)
--- NOTE | 2018-11-13 11:36 | XR ---
EXAMINATION TYPE: XR chest 2V DATE OF EXAM: 11/13/2018 COMPARISON: 11/28/2015 HISTORY: Presurgical testing. TECHNIQUE: Frontal and lateral views of the chest are obtained. FINDINGS: Strand-like bibasilar atelectasis is seen. No focal consolidation, pleural effusion or pne umothorax. Moderate multilevel degenerative change of the thoracic spine is noted. Cardiomediastinal silhouette is upper limits normal size. Right breast surgical clips are present. IMPRESSION: Bibasilar subsegmental atelectasis otherwise no acute cardiopulmonary process.
[2018-11-13 12:30] LABS: Appearance,Urine Clear (Clear); Bilirubin,Urine Negative (Negative); Blood,Urine Negative (Negative); Color,Urine Yellow; Glucose,Urine (UA) Negative (Negative); Ketones,Urine Negative (Negative); Leukocyte Esterase,Urine Negative (Negative); Nitrite,Urine Negative (Negative); PH, Urine 5.5 (5.0-8.0); Protein,Urine Negative (Negative); Specific Gravity,Urine 1.024 (1.001-1.035); Urobilinogen,Urine <2.0 mg/dL (<2.0)
[2018-11-13 16:30] LABS: Anion Gap 8.1 mmol/L (4.00-12.00); Calcium 10.1 mg/dL (8.7-10.3); Carbon Dioxide 27.9 mmol/L (21.6-31.8)
== END | disposition home or self-care (01) ==
LOC: LABWHC1 09:46
PROVIDERS: ATTEND Orthopaedic Surgery Orthopaedic Surgery of the Spine
DX: Z01.818 Encounter for other preprocedural examination (principal); J98.11 Atelectasis; M48.00 Spinal stenosis, site unspecified
CPT/HCPCS: 36415; 71046; 80048; 81003; 85025; 85610; 85730; 93005

== ENCOUNTER 2018-12-09 10:35 | Day surgery (SDC) | payer MEDICAID ==
[2018-11-29 15:22] VITALS: BMI 27.9
[~2018-12-09 10:35] MED LIST changes: +BACITRACIN 50,000 UNIT, POLYMYXIN B 500,000 UNIT in SODIUM CHLORIDE 0.9% IRRIGATIO 1,00... IRRIGATION ONE; +DEXAMETHASONE SOD PHOSPHATE 10 MG/ML 1 ML VIAL IV ONE; +LIDOCAINE 1% 20 ML VIAL (10MG/ML) FOR IV START INTRADERMA PRN; +MIDAZOLAM (PF) 2 MG/2 ML VIAL IV PRN; +ONDANSETRON 4 MG/2 ML VIAL IVP ONE; +SCOPOLAMINE 1.5MG/72HR PATCH TRANSDERM ONE; +ceFAZolin IN SWFI 2 GM/20 ML SYRINGE IVP ONE
[2018-12-09] MEDS ORDERED: SUCCINYLCHOLINE CHLORIDE 100 MG/5 ML SYR IV ONE (11:57)
[2018-12-09] MEDS ORDERED: HYDROmorphone (PF) 1 MG/ML ONE (11:57)
[2018-12-09] MEDS ORDERED: ROCURONIUM BROMIDE 10 MG/ML 10 ML VIAL IV ONE (11:57)
[2018-12-09] MEDS ORDERED: NEOSTIGMINE 1 MG/ML 10 ML VIAL ONE (11:57)
[2018-12-09] MEDS ORDERED: LIDOCAINE 1% INJ 10MG/ML (20 ML MDV) ONE (11:57)
[2018-12-09] MEDS ORDERED: fentaNYL (PF) 50 MCG/ML 2 ML AMP ONE (11:57)
[2018-12-09] MEDS ORDERED: GLYCOPYRROLATE 0.2 MG/ML 2 ML VIAL ONE (11:57)
[2018-12-09] MEDS ORDERED: PROPOFOL 10 MG/ML 20 ML VIAL IV ONE (11:57)
[2018-12-09] MEDS ORDERED: MIDAZOLAM 2 MG/2 ML VIAL ONE (11:57)
[2018-12-09] MEDS ORDERED: GELATIN SPONGE,ABSORB (LARGE) 1 EACH SPONGE TOPICAL ONE (12:20)
[2018-12-09] MEDS ORDERED: THROMBIN (BOVINE) 5,000 UNIT VIAL TOPICAL ONE (12:20)
[2018-12-09] MEDS ORDERED: BUPIVACAIN-EPI 0.5%-1:200,000 30 ML VIAL SQ ONE (12:25)
[2018-12-09] MEDS ORDERED: LACTATED RINGERS 1,000 ML IV ONE (12:29)
[2018-12-09] MEDS ORDERED: methylPREDNISolone ACETATE 40 MG/ML 1 ML VIAL MISCELLANE ONE (12:57)
--- NOTE | 2018-12-09 13:10 | FL ---
EXAMINATION TYPE: FL guidance operating room, XR lumbar spine 1V DATE OF EXAM: 12/09/2018 CLINICAL HISTORY: Low back pain. TECHNIQUE: Fluoroscopy.Lumbar spine one view intraoperatively. COMPARISON: CT abdomen July 26, 2018. FINDINGS: Fluoroscopic guidance was provided during lumbar laminectomy procedure performed by Dr. Yury bear. A total of 7 seconds of fluoroscopic time was utilized during the procedure and single spot int raoperative image is acquired. Single image acquired shows advancement of surgical hardware from posterior approach, level uncertain as lumbosacral junction cannot be well-visualized. IMPRESSION: As Above.
[2018-12-09] MEDS ORDERED: HYDROmorphone 0.5 MG/0.5 ML SYRINGE IVP PRN (13:21)
[2018-12-09] MEDS ORDERED: IBUPROFEN 600 MG TAB PO PRN ×2 (13:21→13:23)
[2018-12-09] MEDS ORDERED: MAGNESIUM HYDROXIDE 2,400 MG/10 ML CUP PO PRN (13:21)
[2018-12-09] MEDS ORDERED: ONDANSETRON 4 MG/2 ML VIAL IVP PRN (13:21)
[2018-12-09] MEDS ORDERED: BENZOCAINE/MENTHOL LOZENG 1 EACH LOZENGE MUCOUS MEM PRN (13:21)
[2018-12-09] MEDS ORDERED: KETOROLAC 30 MG/ML 1 ML VIAL IVP PRN (13:21)
[2018-12-09] MEDS ORDERED: HYDROmorphone 1 MG/ML 1 ML SYRINGE IVP PRN (13:21)
[2018-12-09] MEDS ORDERED: traMADol 50 MG TAB PO PRN (13:23)
[2018-12-09] MEDS ORDERED: HYDROcodone/APAP 7.5-325MG 1 EACH TAB PO PRN ×2 (13:23→13:24)
[2018-12-09] MEDS ORDERED: LORazepam 1 MG TAB PO PRN (13:23)
[2018-12-09] MEDS: HYDROmorphone 0.5 MG/0.5 ML SYRINGE IVP PRN ×3 (13:30→13:40)
[2018-12-09] MEDS ORDERED: SODIUM CHLORIDE 0.9% 1,000 ML IV SCH (13:30)
[2018-12-09 13:32] VITALS: TEMP 97.4
--- NOTE | 2018-12-09 13:32 | P.OP ---
Date of Procedure: 12/09/18 Preoperative Diagnosis: Severe spinal stenosis L3 4, facet cyst L3 4, low back pain, lower extremity radiculopathy, neurogenic claudication Postoperative Diagnosis: Same Anesthesia: GETA Pathology: other (products of laminectomy L3 4 sent to pathology) Condition: stable Disposition: PACU Description of Procedure: BRIEF OPERATIVE NOTE Preoperative Diagnosis:Severe spinal stenosis L3 4, facet cyst L3 4, low back pain, lower extremity radiculopathy, neurogenic claudication Postoperative Diagnosis:Severe spinal stenosis L3 4, facet cyst L3 4, low back pain, lower extremity radiculopathy, neurogenic claudication Procedure: Laminectomy and decompression L3 4 Excision of facet cyst/epidural mass L3 4 Surgeon: Dr. Mcclain Community Service Officer: None Anesthesia: General anesthesia Estimated blood loss: Approximately 50 mL Complications: None apparent Components implanted: None Specimen: Product of laminectomy L3 4 sent to pathology Disposition: To recovery room in good stable condition. OPERATIVE INDICATIONS The patient has been having issues in their lower back and lower extremities. She has been dealing with pain in her back in her left lower extremity for quite sometime. She's had have significant stenosis at L3 4 with evidence of facet cyst at L3 4. She was having significant low back pain with lower extremity radiculopathy which correlated well with her imaging findings. The patient has been through conservative treatment. She is not having any prolonged benefit despite aggressive conservative care. We discussed various treatment options including surgery, and the patient wishes to proceed with surgery We discussed the risk, patient's alternatives and benefits of surgery including but not limited to, risk of bleeding risk of infection, risk of need for further surgery, risk of decreased, loss of motion, loss of function, nerve damage, paralysis, heart attack, blindness and . OPERATIVE SUMMARY After discussing all the risks, patient alternatives and benefits at length, the patient elected to proceed with surgical intervention, signed informed consent, and presented for their procedure. The patient was seen and examined in the preoperative holding area and the surgical site was marked. The patient was given antibiotics and brought to the operating room. The patient was sedated and intubated by anesthesia in standard fashion. The patient was positioned on to the operating room table in a prone position on the appropriate frame which was well-padded and well molded. We were careful to pad any bony prominences and pressure points. We were careful to maintain the patient's cervical spine and good neutral alignment and position throughout. The patient was prepped and draped in a normal standard fashion. An appropriate timeout and keystone protocol performed. We were able to proceed with the surgery. Fluoroscopy was utilized to establish the appropriate level at L3 4. The local wound area was infiltrated with local anesthetic. An incision was made at the midline longitudinally over the appropriate levels at L3 4 approximate inch and a half in length . Dissection was taken down cook bcutaneously to the level of the fascia which was split midline. Dissection was taken over the lamina. Intraoperative fluoroscopy was taken which showed a marker at the appropriate level At L3 4. With the appropriate level positively confirmed, we were able to proceed with laminectomy. The wound was copiously irrigated and suctioned dry as had been done periodically throughout the case. I performed a laminectomy with a combination of curettes and a high-speed bur and Kerrison rongeurs. there was evidence of thickening of ligamentum flavum and hypertrophy at the facet joint. there is significant calcified cystic material at the left which seemed to arise from the left facet joint. There also appeared to be evidence of cystic material causing significant compression at the dura and the traversing nerve root. A partial foraminotomy was also performed. Portions of the ligamentum flavum were taken down to expose the dura and traversing nerve root. I was able to tease away the cyst from the dura and excise the cyst and the calcified areas of the cyst. The products of the laminectomy were removed and sent to pathology. I was able to mobilize the nerve root and examined the disc. There is no evidence of significant disc herniation. There were no extruded fragments noted. There is no evidence of dural tear or leak. Good hemostasis maintained. The wound was copiously i rrigated and suctioned dry. Good decompression was noted centrally and at the neural foramen. We were able to proceed with closure. The fascia was closed for a watertight closure. The subcuticular tissue was closed with absorbable suture. The wound was cleaned and dried and dressed with the appropriate dressing. The drapes were broken down. The patient was gently rolled back onto their hospital bed being careful to maintain their cervical spine and good neutral alignment and position. They were woken up by anesthesia, extubated, and brought to the recovery room in good stable condition. The patient will be admitted to the hospital for observation and for appropriate postoperative care, medical management and monitoring. We will continue to follow them closely about the postoperative course.
[2018-12-09] MEDS ORDERED: LABETALOL 5 MG/ML VIAL MDV IVP ONE (13:41)
[2018-12-09] MEDS: hydrALAZINE HCL 20 MG/ML 1 ML VIAL IVP ONE ×2 (13:43→14:10)
[2018-12-09 15:47] VITALS: BP 145/80; PULSE 76; RESP 16
[2018-12-09] MEDS ORDERED: HYDROcodone/APAP 7.5-325MG 1 EACH TAB PO ONE (15:52)
[2018-12-09] MEDS ORDERED: ceFAZolin IN SWFI 2 GM/20 ML SYRINGE IVP SCH (16:00)
[2018-12-10] MEDS ORDERED: ANASTROZOLE 1 MG TAB PO SCH (09:00)
[2018-12-10] MEDS ORDERED: VITAMIN D3 PO SCH (09:00)
[2018-12-10] MEDS ORDERED: CALCIUM CARBONATE PO SCH (09:00)
[2018-12-10] MEDS ORDERED: PSEUDOEPHEDRINE PO SCH (09:00)
[2018-12-10] MEDS ORDERED: CETIRIZINE HCL PO SCH (09:00)
== END 2018-12-09 16:24 | disposition home or self-care (01) ==
LOC: OR 10:35
PROVIDERS: ATTEND Orthopaedic Surgery Orthopaedic Surgery of the Spine
DX: M48.062 Spinal stenosis, lumbar region with neurogenic claudication (principal); M85.68 Other cyst of bone, other site; M43.16 Spondylolisthesis, lumbar region; M51.16 Intervertebral disc disorders with radiculopathy, lumbar region; M47.27 Other spondylosis with radiculopathy, lumbosacral region; M47.26 Other spondylosis with radiculopathy, lumbar region; F17.210 Nicotine dependence, cigarettes, uncomplicated; M46.88 Other specified inflammatory spondylopathies, sacral and sacrococcygeal region; Z79.891 Long term (current) use of opiate analgesic; Z79.811 Long term (current) use of aromatase inhibitors; Z79.899 Other long term (current) drug therapy; Z85.3 Personal history of malignant neoplasm of breast; Z83.3 Family history of diabetes mellitus; Z82.49 Family history of ischemic heart disease and other diseases of the circulatory system; Z88.5 Allergy status to narcotic agent
CPT/HCPCS: 72020; 63047; J2250 ×2; J0360; J1030; J1100; J2710; J2405; J2001; J3010; J1170 ×2; J0330; J2704; J0690

== ENCOUNTER → 2018-12-25 | Outpatient (CLI) | payer MEDICAID ==
--- NOTE | 2018-12-25 11:20 | XR ---
EXAMINATION TYPE: XR lumbar spine 2 or 3V DATE OF EXAM: 12/25/2018 CLINICAL HISTORY: pain TECHNIQUE: Three views of the lumbar spine are submitted. COMPARISON: None. FINDINGS: There are 5 lumbar type vertebral bodies identified. The lumbar spine shows satisfactory alignment w ithout evidence of acute fracture or dislocation. Vertebral body heights are within normal limits. Mi ld degenerative changes L3-4 through L5-S1. Moderate to severe facet joint arthropathy. Grade 1 anter olisthesis L4 and L5 measuring 2 mm. The overlying soft tissue appears unremarkable. IMPRESSION: No acute fracture or dislocation is seen in the lumbar spine. ICD 10 NO FRACTURE, INITIAL EVALUATION
== END | disposition home or self-care (01) ==
LOC: RADXRMAIN 10:49
PROVIDERS: ATTEND Orthopaedic Surgery Orthopaedic Surgery of the Spine
DX: M48.062 Spinal stenosis, lumbar region with neurogenic claudication (principal); M51.36 Other intervertebral disc degeneration, lumbar region; M43.16 Spondylolisthesis, lumbar region; M47.817 Spondylosis without myelopathy or radiculopathy, lumbosacral region; M47.816 Spondylosis without myelopathy or radiculopathy, lumbar region; F17.200 Nicotine dependence, unspecified, uncomplicated; Z48.89 Encounter for other specified surgical aftercare; Z98.890 Other specified postprocedural states
CPT/HCPCS: 72100

== ENCOUNTER → 2018-12-30 | Outpatient (CLI) | payer MEDICAID ==
[2018-12-30 16:08] LABS: Albumin 4.6 g/dL (3.80-4.90); Albumin/Globulin Ratio 2.3 (1.60-3.17); Bilirubin, Conjugated 0.2 mg/dL (0.20-0.40); Bilirubin,Unconjugated 0.6 mg/dL; Total Bilirubin 0.8 mg/dL (0.3-1.2); Total Protein 6.6 g/dL (6.2-8.2)
[2018-12-31 14:49] LABS: Hepatits C Virus RNA Not detected (Not detected); Hepatits C Virus RNA, Quant <12 IU/mL (<12); LOG HCV IU/mL <1.08 (<1.08)
== END ==
LOC: LABWHC1 08:25
PROVIDERS: ATTEND Internal Medicine Gastroenterology
DX: B19.20 Unspecified viral hepatitis C without hepatic coma (principal)
CPT/HCPCS: 36415; 80076; 87522

== ENCOUNTER → 2019-01-28 | Outpatient (CLI) | payer MEDICAID ==
--- NOTE | 2019-01-28 08:29 | MM ---
Reason for exam: additional evaluation requested from prior study. Last mammogram was performed 1 year ago. History: Patient is postmenopausal, has history of breast cancer at age 53, history of other cancer, and is nulliparous. Family history of breast cancer in paternal aunt. Malignant right breast needle localzation of the right breast, May 11, 2009. Malignant right mammotome panel of the right breast, April 30, 2009. Radiation therapy of the right breast, 2008. Benign stereotactic core biopsy of the left breast, December 24, 1998. Took estrogen for 9 years 2 months beginning at age 44. Took progesterone for 9 years 2 months beginning at age 44. Taking antineoplastic for 8 years beginning at age 53. Physical Findings: Nurse Summary: 1cm nodule in the right breast at 11, 12 o'clock (nurse mj). MG 3D Diag Mammo W/Cad DAISY Bilateral CC and MLO view(s) were taken. Prior study comparison: January 22, 2018, bilateral MG diagnostic mammo w CAD DAISY. June 18, 2017, bilateral MG 3d diag mammo w/cad DAISY. June 03, 2016, bilateral MG 3d diag mammo w/cad DAISY. The breast tissue is heterogeneously dense. This may lower the sensitivity of mammography. Previous mammotome biopsy in the left breast. Asymmetric breast tissue greater in the left breast. There is no discrete abnormality at BB marked areaa same as previous BB marked areas. Post biopsy changes. These results were verbally communicated with the patient and result sheet given to the patient on 01/28/19. ASSESSMENT: Benign, BI-RAD 2 RECOMMENDATION: Follow-up diagnostic mammogram of both breasts in 1 year. Manage patient on a clinical basis.
== END ==
LOC: RADMAMWWP 07:23
PROVIDERS: ATTEND Internal Medicine Hematology & Oncology
DX: Z08 Encounter for follow-up examination after completed treatment for malignant neoplasm (principal); Z85.3 Personal history of malignant neoplasm of breast
CPT/HCPCS: 77062; 77066

== ENCOUNTER → 2019-06-03 | Outpatient (CLI) | payer MEDICAID ==
--- NOTE | 2019-06-03 11:52 | XR ---
EXAMINATION TYPE: XR cervical spine w flex/ext DATE OF EXAM: 06/03/2019 COMPARISON: None HISTORY: Cervicalgia TECHNIQUE: Five-view cervical spine FINDINGS: Facet degenerative changes are evident. Mild diffuse narrowing of the foramen is present bi laterally. Appears most focal on the right C4-5 level with moderate foraminal narrowing. Degenerative disc changes are present C5-C6. Remaining disc heights are preserved. Some posterior dis c space endplate spurring at C5-6 is noted. Prevertebral space is normal. Posterior spinal lamellar l ine is intact. There is preservation of the vertebral body alignment with both flexion and extension views of the sa gittal plane. Tip of the odontoid is limited due to overlying occiput. IMPRESSION: 1. Moderate foraminal narrowing right C5-6 2. C5-6 degenerative disc changes
== END | disposition home or self-care (01) ==
LOC: RADXRMAIN 06:50
PROVIDERS: ATTEND Orthopaedic Surgery Orthopaedic Surgery of the Spine
DX: Z48.89 Encounter for other specified surgical aftercare (principal); M48.02 Spinal stenosis, cervical region; M51.34 Other intervertebral disc degeneration, thoracic region; F17.200 Nicotine dependence, unspecified, uncomplicated; Z98.890 Other specified postprocedural states
CPT/HCPCS: 72052

== ENCOUNTER → 2019-06-15 | Outpatient (CLI) | payer MEDICAID ==
[2019-06-16 14:30] LABS: Hepatits C Virus RNA Not detected (Not detected); Hepatits C Virus RNA, Quant <12 IU/mL (<12); LOG HCV IU/mL <1.08 (<1.08)
== END ==
LOC: LABWHC1 06:55
PROVIDERS: ATTEND Internal Medicine Gastroenterology
DX: Z09 Encounter for follow-up examination after completed treatment for conditions other than malignant neoplasm (principal); Z86.19 Personal history of other infectious and parasitic diseases
CPT/HCPCS: 36415; 87522

== ENCOUNTER → 2019-07-20 | Day surgery (SDC) | payer MEDICAID, MEDICARE, BC ==
[2019-07-18 13:47] VITALS: BMI 26.9
[~2019-07-20] MED LIST changes: -BACITRACIN 50,000 UNIT, POLYMYXIN B 500,000 UNIT in SODIUM CHLORIDE 0.9% IRRIGATIO 1,00... IRRIGATION ONE; +BALANCED SALT IRRIG SOLN COMB2 15 ML IRRIG.SOLN IRRIGATION ONE; -DEXAMETHASONE SOD PHOSPHATE 10 MG/ML 1 ML VIAL IV ONE; +EPINEPHrine (PF) 0.3 ML in BALANCED SALT IRRIG SOLN COMB2 500 ML IRRIGATION ONE; +HYALURONATE SODIUM INTRAOCULAR 1 EACH SYRINGE (12MG/ML) INTRAOCULA ONE; +LIDOCAINE 1% (PF) 10MG/ML VIAL SQ ONE; -MIDAZOLAM (PF) 2 MG/2 ML VIAL IV PRN; +MIDAZOLAM 2 MG/2 ML VIAL ONE; -ONDANSETRON 4 MG/2 ML VIAL IVP ONE; -SCOPOLAMINE 1.5MG/72HR PATCH TRANSDERM ONE; +TETRACAINE 0.5% OPHTH (PF) DROPS 4 ML BTL OP NR; -ceFAZolin IN SWFI 2 GM/20 ML SYRINGE IVP ONE; +fentaNYL (PF) 50 MCG/ML 2 ML AMP ONE
[2019-07-20] MEDS: CYCLOPENTOLATE 1% OPHTH SOLN 2 ML BTL OP NR ×4 (07:32→07:48)
[2019-07-20] MEDS: PHENYLEPHRINE 2.5% OPHTH DRP 2ML OP NR ×3 (07:35→07:49)
[2019-07-20 07:40] VITALS: TEMP 98.1
[2019-07-20] MEDS: MOXIFLOXACIN HCL 0.5% DROPS 3 ML BTL OP ONE ×2 (08:12→08:18)
[2019-07-20] MEDS: TIMOLOL 0.5% OPHTH DROPS 5 ML BTL OP ONE ×2 (08:12→08:18)
--- NOTE | 2019-07-20 08:31 | P.PCN ---
Date of Procedure: 07/20/19 Preoperative Diagnosis: NS Postoperative Diagnosis: same Procedure(s) Performed: PIOL, OD Implants: PCB00 19.00 Anesthesia: MAC Surgeon: Ziggy Pena Estimated Blood Loss (ml): 0 Pathology: none sent Condition: stable Disposition: same day Indications for Procedure: blurry vision Operative Findings: no complications
[2019-07-20 08:36] VITALS: RESP 17
[2019-07-20 08:52] VITALS: BP 153/69; PULSE 68
--- NOTE | 2019-07-21 05:37 | OP ---
OPERATIVE REPORT DATE OF SURGERY: 07/20/2019 SURGEON: Ziggy Pena MD PREOPERATIVE DIAGNOSIS: Nuclear sclerosis and Fuchs dystrophy. POSTOPERATIVE DIAGNOSIS: Nuclear sclerosis and Fuchs dystrophy. PROCEDURE: Phacoemulsification of cataract and intraocular lens implant of the right eye. ESTIMATED BLOOD LOSS: Zero. SPECIMEN TAKEN: None. NARRATIVE: After obtaining the appropriate consent, the patient was brought to the Operating Room where the patient was placed under cardiac monitoring and prepped and draped in the usual sterile manner. At the 11 o'clock position a 15 degree super sharp blade was used to create a paracentesis followed by instillation of 1% Xylocaine MPF 50:50 mix with BSS into the anterior chamber. This was followed by Amvisc to stabilize the anterior chamber. At the 9 o'clock position a self-sealing corneal flap incision was created using 2.8 mm yvonne keratome. A cystotome was used to initiate a continuous tear capsulorrhexis which was completed with the Utrata forceps. A Binkhorst cannula was used to hydrodissect the lens nucleus followed by hydrodelineation. Phacoemulsification of the lens was performed utilizing phaco chop in 8.57 seconds at 11% power. The remaining cortical material was removed using the irrigation aspiration mode followed by additional 1% Xylocaine MPF into the anterior chamber followed by viscoelastic to stabilize the capsular bag. An Frandy and Frandy PCB00 19.0 diopters posterior chamber lens was placed into the capsular bag without difficulty. The remaining viscoelastic material was removed from the anterior chamber with the irrigation/aspiration. Balanced salt solution was used to normalize the intraocular pressure. The incision was checked for watertight integrity. The patient then received two drops of 0.5% timolol followed by two drops Vigamox, was lightly patched and shielded in the usual manner. There were no complications from the procedure. The patient tolerated the procedure well and was returned to recovery in good condition. MMODL / IJN: [id number] /
== END | disposition home or self-care (01) ==
LOC: OR 07:02
PROVIDERS: ATTEND Ophthalmology
DX: H25.11 Age-related nuclear cataract, right eye (principal); H18.51 Endothelial corneal dystrophy; H00.023 Hordeolum internum right eye, unspecified eyelid; H00.026 Hordeolum internum left eye, unspecified eyelid; H52.03 Hypermetropia, bilateral; H52.4 Presbyopia; F41.9 Anxiety disorder, unspecified; F17.210 Nicotine dependence, cigarettes, uncomplicated; M19.90 Unspecified osteoarthritis, unspecified site; Z85.3 Personal history of malignant neoplasm of breast; Z79.811 Long term (current) use of aromatase inhibitors; Z79.891 Long term (current) use of opiate analgesic; Z79.899 Other long term (current) drug therapy; Z88.5 Allergy status to narcotic agent; Z91.048 Other nonmedicinal substance allergy status; Z79.1 Long term (current) use of non-steroidal anti-inflammatories (NSAID); Z98.890 Other specified postprocedural states
CPT/HCPCS: 66984; C1780; J2250; J0171; J3010; J2001

== ENCOUNTER 2019-08-01 06:54 | Day surgery (SDC) | payer MEDICAID, MEDICARE, BC ==
[2019-07-28 11:32] VITALS: BMI 26.9
[2019-08-01] MEDS: CYCLOPENTOLATE 1% OPHTH SOLN 2 ML BTL OP ONE ×4 (06:50→07:27)
[~2019-08-01 06:54] MED LIST changes: -BALANCED SALT IRRIG SOLN COMB2 15 ML IRRIG.SOLN IRRIGATION ONE; -EPINEPHrine (PF) 0.3 ML in BALANCED SALT IRRIG SOLN COMB2 500 ML IRRIGATION ONE; -HYALURONATE SODIUM INTRAOCULAR 1 EACH SYRINGE (12MG/ML) INTRAOCULA ONE; -LIDOCAINE 1% (PF) 10MG/ML VIAL SQ ONE; -LIDOCAINE 1% 20 ML VIAL (10MG/ML) FOR IV START INTRADERMA PRN; -MIDAZOLAM 2 MG/2 ML VIAL ONE; +MOXIFLOXACIN HCL 0.5% DROPS 3 ML BTL OP ONE; -TETRACAINE 0.5% OPHTH (PF) DROPS 4 ML BTL OP NR; +TETRACAINE 0.5% OPHTH (PF) DROPS 4 ML BTL OP ONE; +TIMOLOL 0.5% OPHTH DROPS 5 ML BTL OP ONE; -fentaNYL (PF) 50 MCG/ML 2 ML AMP ONE
[2019-08-01] MEDS: PHENYLEPHRINE 2.5% OPHTH DRP 2ML OP NR ×3 (07:18→07:32)
[2019-08-01] MEDS ORDERED: LIDOCAINE 1% 20 ML VIAL (10MG/ML) FOR IV START INTRADERMA ONE (07:18)
[2019-08-01 07:21] VITALS: TEMP 97.6
[2019-08-01] MEDS ORDERED: fentaNYL (PF) 50 MCG/ML 2 ML AMP ONE (08:04)
[2019-08-01] MEDS ORDERED: MIDAZOLAM 2 MG/2 ML VIAL ONE (08:04)
[2019-08-01] MEDS ORDERED: EPINEPHrine (PF) 0.3 ML in BALANCED SALT IRRIG SOLN COMB2 500 ML IRRIGATION ONE (08:07)
[2019-08-01] MEDS ORDERED: HYALURONATE SODIUM INTRAOCULAR 1 EACH SYRINGE (12MG/ML) INTRAOCULA ONE (08:14)
[2019-08-01] MEDS ORDERED: LIDOCAINE 1% (PF) 10MG/ML VIAL SQ ONE (08:15)
[2019-08-01] MEDS ORDERED: BALANCED SALT IRRIG SOLN COMB2 15 ML IRRIG.SOLN IRRIGATION ONE (08:15)
--- NOTE | 2019-08-01 08:36 | P.OP ---
Date of Procedure: 08/01/19 Preoperative Diagnosis: NS Postoperative Diagnosis: same Procedure(s) Performed: PIOL, OS Implants: PCB00 19.50 Anesthesia: MAC Surgeon: Ziggy Pena Pathology: none sent Condition: stable Disposition: same day Indications for Procedure: blurry vision Operative Findings: no complications
[2019-08-01 08:47] VITALS: RESP 18
[2019-08-01 09:01] VITALS: BP 156/89; PULSE 60
--- NOTE | 2019-08-02 06:40 | OP ---
OPERATIVE REPORT DATE OF SERVICE: 08/01/2019 SURGEON: Dr. Ziggy Pena PREOPERATIVE DIAGNOSIS: Nuclear sclerosis. POSTOPERATIVE DIAGNOSIS: Nuclear sclerosis. OPERATION: Phacoemulsification of cataract and intraocular lens implant to the left eye. ESTIMATED BLOOD LOSS: Zero. SPECIMEN TAKEN: None. NARRATIVE: After obtaining the appropriate consent, the patient was brought to the operating room where the patient was placed under cardiac monitoring and prepped and draped in the usual sterile manner. At the 5 o'clock position a 15 degree super sharp blade was used to create a paracentesis followed by instillation of 1% Xylocaine MPF 50:50 mix with BSS into the anterior chamber. This was followed by Amvisc to stabilize the anterior chamber. At the 3 o'clock position a self-sealing corneal flap incision was created using 2.8 mm yvonne keratome. A cystotome was used to initiate a continuous tear capsulorrhexis which was completed with the Utrata forceps. A Binkhorst cannula was used to hydrodissect the lens nucleus followed by hydrodelineation. Phacoemulsification of the lens was performed utilizing phaco chop in 12.5 seconds at 18% power. The remaining cortical material was removed using the irrigation aspiration mode followed by additional 1% Xylocaine MPF into the anterior chamber followed by viscoelastic to stabilize the capsular bag. An FARA PCB00, 19.5 diopters posterior chamber lens was placed into the capsular bag without difficulty. The remaining viscoelastic material was removed from the anterior chamber with the irrigation/aspiration. Balanced salt solution was used to normalize the intraocular pressure. The incision was checked for watertight integrity. The patient then received two drops of 0.5% timolol followed by two drops Vigamox, was lightly patched and shielded in the usual manner. There were no complications from the procedure. The patient tolerated the procedure well and was returned to recovery in good condition. MMODL / IJN: [id number] /
== END 2019-08-01 09:15 | disposition home or self-care (01) ==
LOC: OR 06:54
PROVIDERS: ATTEND Ophthalmology
DX: H25.12 Age-related nuclear cataract, left eye (principal); H00.023 Hordeolum internum right eye, unspecified eyelid; H00.026 Hordeolum internum left eye, unspecified eyelid; H18.51 Endothelial corneal dystrophy; H52.03 Hypermetropia, bilateral; H52.4 Presbyopia; F17.210 Nicotine dependence, cigarettes, uncomplicated; F41.9 Anxiety disorder, unspecified; M19.90 Unspecified osteoarthritis, unspecified site; Z88.5 Allergy status to narcotic agent; Z79.899 Other long term (current) drug therapy; Z85.3 Personal history of malignant neoplasm of breast; Z98.890 Other specified postprocedural states; Z98.41 Cataract extraction status, right eye; Z97.3 Presence of spectacles and contact lenses; Z82.49 Family history of ischemic heart disease and other diseases of the circulatory system; Z83.3 Family history of diabetes mellitus; Z80.9 Family history of malignant neoplasm, unspecified; Z96.1 Presence of intraocular lens
CPT/HCPCS: 66984; C1780; J2250; J0171; J3010; J2001

== ENCOUNTER 2019-10-06 05:05 | Emergency (ER) | payer MEDICARE, BC ==
[2019-10-06 05:12] VITALS: BP 183/102; PULSE 85; RESP 18; TEMP 98.2
[2019-10-06 05:57] LABS: Appearance,Urine Clear (Clear); Bilirubin,Urine Negative (Negative); Blood,Urine Negative (Negative); Color,Urine Yellow; Glucose,Urine (UA) Negative (Negative); Ketones,Urine Negative (Negative); Leukocyte Esterase,Urine Moderate (Negative); Mucus,Urine Few /hpf; Nitrite,Urine Negative (Negative); PH, Urine 6.5 (5.0-8.0); Protein,Urine Trace (Negative); RBC,Urine 3 /hpf (0-5); Specific Gravity,Urine 1.025 (1.001-1.035); Squamous Epithelial Cell,Urine 1 /hpf (0-4); Urobilinogen,Urine <2.0 mg/dL (<2.0); WBC,Urine 4 /hpf (0-5)
[2019-10-06 05:58] LABS: Basophils # (A) 0.1 k/uL (0-0.2); Basophils % (A) 1 %; Eosinophils # (A) 0.2 k/uL (0-0.7); Eosinophils % (A) 4 %; HCT 48.4 % (34.0-46.0); HGB 15.9 gm/dL (11.4-16.0); Lymphocytes # (A) 1.1 k/uL (1.0-4.8); Lymphocytes % (A) 20 %; MCHC 32.8 g/dL (31.0-37.0); MCV 91.6 fL (80.0-100.0); Mean Platelet Volume 7.9; Monocytes # (A) 0.3 k/uL (0-1.0); Monocytes % (A) 6 %; Neutrophils # (A) 3.7 k/uL (1.3-7.7); Neutrophils % (A) 68 %; Platelet Count 177 k/uL (150-450); RBC 5.29 m/uL (3.80-5.40); RDW 12.3 % (11.5-15.5); WBC 5.4 k/uL (3.8-10.6)
[2019-10-06] MEDS ORDERED: ACET/COD 300 MG/30 MG STARTER PACK 6 TAB BTL PO STA (06:04)
[2019-10-06] MEDS ORDERED: MORPHINE SULFATE 4 MG/ML SYRINGE IVP STA (06:04)
[2019-10-06] MEDS ORDERED: valACYclovir 500 MG TAB PO STA (06:05)
[2019-10-06] MEDS ORDERED: ONDANSETRON 4 MG ODT STARTER PACK 2 TAB BTL PO STA (06:05)
[2019-10-06] MEDS ORDERED: predniSONE 20 MG TAB PO STA (06:07)
[2019-10-06 06:10] LABS: ALT 17 U/L (4-34); AST 25 U/L (14-36); African American GFR (CKD) >90 (>60 ml/min/1.73 sqM); Alkaline Phosphatase 60 U/L (38-126); Anion Gap 9 mmol/L; Blood Urea Nitrogen 17 mg/dL (7-17); Calcium 9.6 mg/dL (8.4-10.2); Carbon Dioxide 25 mmol/L (22-30); Chloride 100 mmol/L (98-107); Glucose 116 mg/dL (74-99); Non-African American GFR(CKD) >90 (>60 ml/min/1.73 sqM); Potassium 4.4 mmol/L (3.5-5.1); Sodium 134 mmol/L (137-145); Total Bilirubin 0.9 mg/dL (0.2-1.3); Total Protein 8.4 g/dL (6.3-8.2)
--- NOTE | 2019-10-06 06:13 | ED ---
General Adult HPI - General Chief complaint: Abdominal Pain Stated complaint: abd pain Time Seen by Provider: 10/06/19 05:21 Source: patient Mode of arrival: ambulatory Limitations: no limitations - History of Present Illness Initial comments: Debbie is a 64 yo female who presents to the ER today for evaluation of left- sided flank pain. Patient reports the pain is been intermittently for 3 days. Pain is on the left flank, seems to be worsening keeps her from sleeping. Pain is not associated with any nausea vomiting diarrhea constipation change in bowel or bladder habits. Patient does report some tenderness to palpation of the flank. She has not looked to see if there is any rash or injury. He stones or diverticulitis, her last colonoscopy was 2 years ago and was normal. - Related Data Home Medications Medication Instructions Recorded Confirmed Anastrozole [Arimidex] 1 mg PO DAILY 06/09/16 07/28/19 Calcium Carbonate/Vitamin D3 1 each PO DAILY 06/09/16 07/28/19 [Calcium 600-Vit D3 800 Tab] Cetirizine HCl/Pseudoephedrine 1 each PO DAILY 06/09/16 07/28/19 [Zyrtec-D Tablet] LORazepam [Ativan] 1 mg PO TID PRN 11/29/18 07/28/19 traMADol HCL [Ultram] 25 mg PO DAILY PRN 11/29/18 07/28/19 Previous Rx's Medication Instructions Recorded Gabapentin [Neurontin] 300 mg PO BID #30 capsule 10/06/19 predniSONE [Deltasone] 40 mg PO DAILY #10 tab 10/06/19 valACYclovir [Valtrex] 1,000 mg PO TID #42 tablet 10/06/19 Allergies Allergy/AdvReac Type Severity Reaction Status Date / Time codeine AdvReac Nausea Verified 10/06/19 05:13 Review of Systems ROS Statement: Those systems with pertinent positive or pertinent negative responses have been documented in the HPI. ROS Other: All systems not noted in ROS Statement are negative. Past Medical History Past Medical History: Cancer, Osteoarthritis (OA) Additional Past Medical History / Comment(s): left eye cataract,rt breast cancer 2010-(33 radiation tx), varicose veins History of Any Multi-Drug Resistant Organisms: None Reported Past Surgical History: Breast Surgery, Orthopedic Surgery Additional Past Surgical History / Comment(s): rt cataract,lt shoulder surgery, rt breast lumpectomy-later hematoma removed, rt carpel tunnel,cyst on spine removed Past Anesthesia/Blood Transfusion Reactions: No Reported Reaction Additional Past Anesthesia/Blood Transfusion Reaction / Comment(s): b/p ran high after a surgery Past Psychological History: No Psychological Hx Reported Smoking Status: Current every day smoker Past Alcohol Use History: None Reported Past Drug Use History: None Reported - Past Family History Mother Family Medical History: Cancer Father Family Medical History: Congestive Heart Failure (CHF) Additional Family Medical History / Comment(s): heart problems General Exam - General Exam Comments Initial Comments: Physical Exam GENERAL: Patient is well-developed and well-nourished. Patient is nontoxic and well- hydrated and is in no distress. HENT: Normocephalic, Atraumatic. EYES: PERRL, EOMI PULMONARY: Unlabored respirations. No audible rales rhonchi or wheezing was noted. CARDIOVASCULAR: There is a regular rate and rhythm without any murmurs gallops or rubs. ABDOMEN: Soft and nontender with normal bowel sounds. No tenderness to palpation SKIN: Left flank with vesicular rash in a dermatomal pattern consistent with shingles : Deferred NEUROLOGIC: Patient is alert and oriented x3. Moving all extremities spontaneously MUSCULOSKELETAL: Normal extremities with adequate strength and full range of motion. No lower extremity swelling or edema. No calf tenderness. PSYCHIATRIC: Normal psychiatric evaluation. Limitations: no limitations Course Vital Signs 10/06/19 05:10 Temperature 98.2 F Pulse Rate 85 Respiratory 18 Rate Blood Pressure 183/102 O2 Sat by Pulse 99 Oximetry Medical Decision Making - Medical Decision Making The patient was seen and evaluated history was obtained from the patient history and physical exam are concerning for a shingles rash in pain secondary to he rpetic neuralgia We will treat with Valtrex, steroids and pain medications She was completely pain-free after IV morphine patient states that she's had mild nausea with codeine in the past but the billing [place] with antiemetics. Labs were unremarkable normal liver function patient will be discharged with Valtrex, steroids, gabapentin and will be given a Zofran starter pack and Tylenol 3 starter pack. Patient was encouraged follow-up with her primary care physician to discuss a shingles vaccination. All questions pertaining care were answered to the best my ability return parameters were discussed patient discharged home in stable condition. - Lab Data Result diagrams: 10/06/19 05:27 10/06/19 05:27 Lab Results 10/06/19 10/06/19 10/06/19 Range/Units 05:27 05:27 05:27 WBC 5.4 (3.8-10.6) k/uL RBC 5.29 (3.80-5.40) m/uL Hgb 15.9 (11.4-16.0) gm/dL Hct 48.4 H (34.0-46.0) % MCV 91.6 (80.0-100.0) fL MCH 30.0 (25.0-35.0) pg MCHC 32.8 (31.0-37.0) g/dL RDW 12.3 (11.5-15.5) % Plt Count 177 (150-450) k/uL Neutrophils % 68 % Lymphocytes % 20 % Monocytes % 6 % Eosinophils % 4 % Basophils % 1 % Neutrophils # 3.7 (1.3-7.7) k/uL Lymphocytes # 1.1 (1.0-4.8) k/uL Monocytes # 0.3 (0-1.0) k/uL Eosinophils # 0.2 (0-0.7) k/uL Basophils # 0.1 (0-0.2) k/uL Sodium 134 L (137-145) mmol/L Potassium 4.4 (3.5-5.1) mmol/L Chloride 100 (98-107) mmol/L Carbon Dioxide 25 (22-30) mmol/L Anion Gap 9 mmol/L BUN 17 (7-17) mg/dL Creatinine 0.51 L (0.52-1.04) mg/dL Est GFR (CKD-EPI)AfAm >90 (>60 ml/min/1.73 sqM) Est GFR (CKD-EPI)NonAf >90 (>60 ml/min/1.73 sqM) Glucose 116 H (74-99) mg/dL Calcium 9.6 (8.4-10.2) mg/dL Total Bilirubin 0.9 (0.2-1.3) mg/dL AST 25 (14-36) U/L ALT 17 (4-34) U/L Alkaline Phosphatase 60 (38-126) U/L Total Protein 8.4 H (6.3-8.2) g/dL Albumin 5.0 (3.5-5.0) g/dL Urine Color Yellow Urine Appearance Clear (Clear) Urine pH 6.5 (5.0-8.0) Ur Specific Kouts 1.025 (1.001-1.035) Urine Protein Trace H (Negative) Urine Glucose (UA) Negative (Negative) Urine Ketones Negative (Negative) Urine Blood Negative (Negative) Urine Nitrite Negative (Negative) Urine Bilirubin Negative (Negative) Urine Urobilinogen <2.0 (<2.0) mg/dL Ur Leukocyte Esterase Moderate H (Negative) Urine RBC 3 (0-5) /hpf Urine WBC 4 (0-5) /hpf Ur Squamous Epith Cells 1 (0-4) /hpf Urine Mucus Few H (None) /hpf Disposition Clinical Impression: Shingles Disposition: HOME SELF-CARE Condition: Stable Instructions (If sedation given, give patient instructions): Shingles (ED) Prescriptions: predniSONE [Deltasone] 40 mg PO DAILY #10 tab Gabapentin [Neurontin] 300 mg PO BID #30 capsule valACYclovir [Valtrex] 1,000 mg PO TID #42 tablet Is patient prescribed a controlled substance at d/c from ED?: No Referrals: Cordell Jacques DO [Primary Care Provider] - 1-2 days
== END 2019-10-06 07:08 | disposition home or self-care (01) ==
LOC: EC 05:05
DX: B02.29 Other postherpetic nervous system involvement (principal); M19.90 Unspecified osteoarthritis, unspecified site; F17.200 Nicotine dependence, unspecified, uncomplicated; Z88.5 Allergy status to narcotic agent; Z79.811 Long term (current) use of aromatase inhibitors; Z79.891 Long term (current) use of opiate analgesic; Z79.899 Other long term (current) drug therapy; Z92.3 Personal history of irradiation; Z85.3 Personal history of malignant neoplasm of breast; Z98.890 Other specified postprocedural states
CPT/HCPCS: 99284; 96374; 36415; 80053; 85025; 81001; J2270; S0119; J7512

== ENCOUNTER → 2020-02-01 | Outpatient (CLI) | payer MEDICARE, BC ==
--- NOTE | 2020-02-02 07:57 | MM ---
Reason for exam: additional evaluation requested from prior study. Last mammogram was performed 1 year ago. History: Patient is postmenopausal, has history of breast cancer at age 53, history of other cancer, and is nulliparous. Family history of breast cancer in maternal aunt. Malignant right breast needle localzation of the right breast, May 11, 2009. Malignant right mammotome panel of the right breast, April 30, 2009. Radiation therapy of the right breast, 2008. Benign stereotactic core biopsy of the left breast, December 24, 1998. Took estrogen for 9 years 2 months beginning at age 44. Took progesterone for 9 years 2 months beginning at age 44. Taking antineoplastic for 8 years beginning at age 53. Physical Findings: Nurse did not find any significant physical abnormalities on exam. MG 3D Diag Mammo W/Cad DAISY Bilateral CC, MLO, and XCCL view(s) were taken. Prior study comparison: January 28, 2019, bilateral MG 3d diag mammo w/cad DAISY. January 22, 2018, bilateral MG diagnostic mammo w CAD DAISY. There are scattered fibroglandular densities. There is a decreased in size and architectural distortion in the right breast consistent with known excision changes. Previous mammotome biopsy in the left breast. There is chronic nodularity in the left breast. There is no discrete abnormality. BB at palpable right breast corresponds to scar. These results were verbally communicated with the patient and result sheet given to the patient on 02/01/20. ASSESSMENT: Benign, BI-RAD 2 RECOMMENDATION: Follow-up diagnostic mammogram of both breasts in 1 year.
== END | disposition home or self-care (01) ==
LOC: RADMAMWWP 07:27
PROVIDERS: ATTEND Internal Medicine Hematology & Oncology
DX: Z85.3 Personal history of malignant neoplasm of breast (principal)
CPT/HCPCS: 77066; G0279; 77062

== ENCOUNTER → 2020-04-09 | Outpatient (CLI) | payer MEDICARE, BC ==
--- NOTE | 2020-04-09 09:41 | BD ---
EXAMINATION TYPE: Axial Bone Density DATE OF EXAM: 04/09/2020 COMPARISON: DEXA 2016 CLINICAL HISTORY: Postmenopausal female Height: 5 FT 3 IN Weight: 167 FRAX RISK QUESTIONS: Alcohol (3 or more units per day): NO Family History (Parent hip fracture): NO Glucocorticoids (More than 3mos): UNSURE (Ex: prednisone, prednisolone, methylprednisolone, dexamethasone, and hydrocortisone). History of Fracture in Adulthood: NO Secondary Osteoporosis: 1. Type 1 Diabetes: NO 2. Hyperthyroidism: NO 3. Menopause before 45: YES 4. Malnutrition: NO 5. Chronic liver disease: NO Rheumatoid Arthritis: NO Current Tobacco Use: YES RISK FACTORS HISTORY OF: Family History of Osteoporosis: NO Active: YES Postmenopausal woman: IN HER 40'S Take estrogen and/or progesterone medications: TOOK PREMPRO 3-4 YEARS NOT NOW Lost more than 2 inches in height since high school: YES MEDICATIONS: Additional Medications: ARIMIDEX, ZYRTEC, ATIVAN, TRAMADOL, IBUPROFEN Additional History: BREAST CANCER RADIATION EXAM MEASUREMENTS: Bone mineral densitometry was performed using the [employer] System. Bone mineral density as measured about the Lumbar spine is: ----- L1-L4(G/cm2): 1.427 T Score Values are as follows: ----- L2: 1.6 ----- L3: 2.5 ----- L4: 2.4 ----- L1-L4: 2.1 Bone mineral density has: DECREASED -1.7 % since study of: 2016 Bone mineral density about the R hip (g/cm2): 0.884 Bone mineral density about the L hip (g/cm2): 0.924 T Score values are as follows: -----R Neck: -1.1 -----L Neck: -0.8 -----R Total: -0.6 -----L Total: 0.0 Bone mineral density has: DECREASED -4.9 % since study of: 2017 IMPRESSION: Osteopenia (T Score between -2.5 and -1) now present femoral neck level right hip. There is slightly increased risk of fracture and the patient may be considered for treatment. Re-Screen 2-5 years. NOTE: T-SCORE=SD OF THE YOUNG ADULT MEAN.
== END | disposition home or self-care (01) ==
LOC: RADBDWWP 07:51
PROVIDERS: ATTEND Internal Medicine Hematology & Oncology
DX: M85.88 Other specified disorders of bone density and structure, other site (principal); Z78.0 Asymptomatic menopausal state; Z79.890 Hormone replacement therapy
CPT/HCPCS: 77080

== ENCOUNTER → 2020-10-06 | Outpatient (CLI) | payer MEDICARE, BC ==
--- NOTE | 2020-10-06 10:35 | XR ---
EXAMINATION TYPE: XR chest 2V DATE OF EXAM: 10/06/2020 COMPARISON: Prior chest x-ray 11/13/2018 HISTORY: R07.89, abnormal chest x-ray, yearly physical TECHNIQUE: Frontal and lateral views of the chest are obtained. FINDINGS: Surgical clips are again noted over the right breast. Patient is rotated. No evident pneum othorax or pleural effusion. Cardiac mediastinal silhouette is unchanged. No evident airspace disease . Suspect prominent epicardial fat pads. There is thoracic spondylosis. IMPRESSION: No acute cardiopulmonary process.
== END | disposition home or self-care (01) ==
LOC: RADXRMAIN 09:16
PROVIDERS: ATTEND Family Medicine
DX: Z00.00 Encounter for general adult medical examination without abnormal findings (principal); R07.89 Other chest pain
CPT/HCPCS: 71046

== ENCOUNTER → 2021-02-05 | Outpatient (CLI) | payer MEDICARE, BC ==
--- NOTE | 2021-02-05 09:36 | MM ---
Reason for exam: additional evaluation requested from prior study. Last mammogram was performed 1 year ago. History: Patient is postmenopausal, has history of breast cancer at age 53, history of other cancer, and is nulliparous. Family history of breast cancer in maternal aunt. Malignant right breast needle localzation of the right breast, May 11, 2009. Malignant right mammotome panel of the right breast, April 30, 2009. Radiation therapy of the right breast, 2008. Benign stereotactic core biopsy of the left breast, December 24, 1998. Took estrogen for 9 years 2 months beginning at age 44. Took progesterone for 9 years 2 months beginning at age 44. Taking antineoplastic for 8 years beginning at age 53. Physical Findings: Nurse did not find any significant physical abnormalities on exam. MG 3D Diag Mammo W/Cad DAISY Bilateral CC and MLO view(s) were taken. Prior study comparison: February 01, 2020, bilateral MG 3d diag mammo w/cad DAISY. January 28, 2019, bilateral MG 3d diag mammo w/cad DAISY. The breast tissue is heterogeneously dense. This may lower the sensitivity of mammography. Stable right lumpectomy and radiation. These results were verbally communicated with the patient and result sheet given to the patient on 02/05/21. ASSESSMENT: Benign, BI-RAD 2 RECOMMENDATION: Follow-up diagnostic mammogram of both breasts in 1 year.
== END | disposition home or self-care (01) ==
LOC: RADMAMWWP 07:38
PROVIDERS: ATTEND Internal Medicine Hematology & Oncology
DX: R92.2 Inconclusive mammogram (principal); Z85.3 Personal history of malignant neoplasm of breast; Z80.3 Family history of malignant neoplasm of breast; Z78.0 Asymptomatic menopausal state
CPT/HCPCS: 77066; G0279; 77062

== ENCOUNTER → 2021-04-15 | Outpatient (CLI) | payer MEDICARE, BC | END | disposition home or self-care (01) | LOC: RADNMMAIN 08:22 | PROVIDERS: ATTEND Family Medicine | DX: Z53.9 Procedure and treatment not carried out, unspecified reason (principal) ==

== ENCOUNTER → 2021-04-18 | Outpatient (CLI) | payer MEDICARE, BC ==
--- NOTE | 2021-04-18 17:58 | ECHOF ---
Referral Reason:R07.9 Chest pain MEASUREMENTS -------- HEIGHT: 162.6 cm WEIGHT: 75.7 kg BP: RVIDd: 2.9 cm (< 3.3) IVSd: 1.5 cm (0.6 - 1.1) LVIDd: 4.4 cm (3.9 - 5.3) LVPWd: 1.5 cm (0.6 - 1.1) IVSs: 1.5 cm LVIDs: 3.0 cm LVPWs: 2.0 cm LAESV Index (A-L): 21.55 ml/m Ao Diam: 2.6 cm (2.0 - 3.7) AV Cusp: 1.9 cm (1.5 - 2.6) LA Diam: 2.6 cm (2.7 - 3.8) MV EXCURSION: 13.874 mm (> 18.000) MV EF SLOPE: 58 mm/s (70 - 150) EPSS: 0.9 cm MV E Nakul: 0.48 m/s MV DecT: 240 ms MV A Nakul: 1.04 m/s MV E/A Ratio: 0.46 RAP: 5.00 mmHg RVSP: 28.36 mmHg FINDINGS -------- Sinus rhythm. This was a technically adequate study. The left ventricular size is normal. There is moderate concentric left ventricular hypertrophy. O verall left ventricular systolic function is normal with, an EF between 55 - 60 %. The diastolic fi lling pattern is normal for the age of the patient 10.96. The right ventricle is normal in size. Normal LA size by volume 22+/-6 ml/m2. The right atrial size is normal. Interatrial and interventricular septum intact. There is no evidence of aortic regurgitation. There is no evidence of aortic stenosis. Mild mitral regurgitation is present. Mild tricuspid regurgitation present. There is no evidence of pulmonary hypertension. The right v entricular systolic pressure, as measured by Doppler, is 28.36mmHg. There is no pulmonic regurgitation present. The aortic root size is normal. Normal inferior vena cava with normal inspiratory collapse consistent with estimated right atrial pre ssure of 5 mmHg. There is no pericardial effusion. CONCLUSIONS -------- 1. The left ventricular size is normal. 2. There is moderate concentric left ventricular hypertrophy. 3. Overall left ventricular systolic function is normal with, an EF between 55 - 60 %. 4. The diastolic filling pattern is normal for the age of the patient 10.96 5. Mild mitral regurgitation is present. 6. Mild tricuspid regurgitation present. 7. There is no evidence of pulmonary hypertension. 8. The right ventricular systolic pressure, as measured by Doppler, is 28.36mmHg. GYROSCOPIC INSTRUMENT MECHANIC: Cayla Valentin RDCS
== END | disposition home or self-care (01) ==
LOC: RADECHMAIN 08:18
PROVIDERS: ATTEND Family Medicine
DX: I51.7 Cardiomegaly (principal); I34.0 Nonrheumatic mitral (valve) insufficiency
CPT/HCPCS: 93306

== ENCOUNTER → 2021-11-07 | Outpatient (CLI) | payer MEDICARE, BC ==
--- NOTE | 2021-11-07 10:01 | CTL ---
EXAMINATION TYPE: CT Low Dose Lung DATE OF EXAM ORDERED: 11/07/2021 HISTORY: Tobacco use. Lung cancer screening CT DLP: [address] CTDI: 2.18 mGy Automated exposure control for dose reduction was used. SCREENING VISIT: Baseline COMPARISON: None available TECHNIQUE: Low dose computed tomography scan was performed through the chest at 1 mm thick sections a nd reconstructed images in multiple planes at 1 mm and [address] DIAGNOSTIC QUALITY: Satisfactory FINDINGS: LUNG NODULES: None. Right lung apex solid 5.[address] image 42. Right upper lobe solid [address] image 56. LUNGS: COPD: Severity: Minimal Fibrosis: Severity: Minimal pleural-based fibrotic changes at the anterolateral aspect of the right u pper lobe. Lymph nodes: No pathologically enlarged Other findings: Mild irregularity and nodular soft tissue thickening of the left anterolateral aspect of the upper to mid trachea measuring up to 4 mm in thickness (image #9, series 3), nonspecific. Thi n linear atelectasis is seen in the left lung base. RIGHT PLEURAL SPACE: Effusion: None Calcification: None Thickening: None Pneumothorax: None LEFT PLEURAL SPACE: Effusion: None Calcification: None Thickening: None Pneumothorax: None HEART: Heart Size: Normal Coronary Calcification: Moderate to marked Pericardial Effusion: None OTHER FINDINGS: Upper abdomen: 2.1 cm right adrenal adenoma, unchanged since 2018 CT abdomen Bony thorax: Degenerative changes of the thoracic spine. Supraclavicular region: None Other: Dilated ascending aorta measuring up to 3.9 cm. Scattered arterial atherosclerotic calcificati ons. IMPRESSION: Irregularity and nodular soft tissue thickening of the left anterolateral aspect of the u pper to mid trachea as described above, incompletely characterized by this CT scan. Recommend further bronchoscopy. Few lung nodules measuring up to 5.6 mm. Other incidental findings as described above. CT LUNG RAD AND CT CHEST RECOMMENDATION: Lung-Rad 2 Benign Appearance or Behavior: Continue annual sc reening with LDCT in 12 months. S Modifier (other clinically significant findings): Nodular tracheal wall thickening as described abo ve, for further bronchoscopy assessment as underlying neoplastic process cannot be excluded.
== END | disposition home or self-care (01) ==
LOC: RADCTMAIN 09:05
PROVIDERS: ATTEND Internal Medicine Hematology & Oncology
DX: Z12.2 Encounter for screening for malignant neoplasm of respiratory organs (principal); J39.8 Other specified diseases of upper respiratory tract; R91.8 Other nonspecific abnormal finding of lung field; Z87.891 Personal history of nicotine dependence
CPT/HCPCS: 71271

== ENCOUNTER → 2021-12-26 | Outpatient (CLI) | payer MEDICARE, BC ==
[2021-12-26 12:31] LABS: African American GFR (CKD) >90 (>60 ml/min/1.73 sqM); Blood Urea Nitrogen 17 mg/dL (7-17); Non-African American GFR(CKD) >90 (>60 ml/min/1.73 sqM)
--- NOTE | 2021-12-26 13:56 | CT ---
EXAMINATION TYPE: CT brain wo/w con DATE OF EXAM: 12/26/2021 COMPARISON: None available HISTORY: Memory loss CT DLP: 2221.40 mGycm Automated exposure control for dose reduction was used. TECHNIQUE: CT scan of the brain is performed without and with IV contrast administration. FINDINGS: Mild bilateral cerebral white matter hypodensities, likely representing mild chronic microvascular is chemic changes. Scattered arterial atherosclerotic calcifications. No acute intracranial hemorrhage. No gross acute cortical infarct. No midline shift, herniation or ve ntriculomegaly. Unremarkable sprague-white matter differentiation, basal cisterns, sella and CP angles. No gross space-occupying lesion, vasogenic edema or mass effect. No area of abnormal enhancement, men ingeal thickening or hyperenhancement. Patent major intracranial vessels. Unremarkable orbits. Mucosal thickening of the paranasal sinuses sparing the frontal sinus. Clear mas toid air cells. Osteopenia. Degenerative changes of the TMJs. IMPRESSION: No acute intracranial abnormality or gross space-occupying lesion. Incidental findings as described a melissa.
== END | disposition home or self-care (01) ==
LOC: RADCTMAIN 11:45
PROVIDERS: ATTEND Family Medicine
DX: R41.3 Other amnesia (principal)
CPT/HCPCS: 82565; 84520; 70470; 36415; Q9967

== ENCOUNTER 2022-01-01 10:59 | Day surgery (SDC) | payer MEDICARE, BC ==
[2021-12-11 10:40] VITALS: BMI 27.4
[~2022-01-01 10:59] MED LIST changes: +ALBUTEROL NEB (CONC) 2.5 MG/0.5 ML INHALATION ONE; +LIDOCAINE 1% (10MG/ML) FOR IV START INTRADERMA PRN; +LIDOCAINE 2% (PF) 20 MG/ML 5 ML VIAL INHALATION ONE; +LIDOCAINE VISCOUS 300 MG/15 ML CUP MUCOUS MEM ONE; -MOXIFLOXACIN HCL 0.5% DROPS 3 ML BTL OP ONE; -TETRACAINE 0.5% OPHTH (PF) DROPS 4 ML BTL OP ONE; -TIMOLOL 0.5% OPHTH DROPS 5 ML BTL OP ONE
[2022-01-01 11:55] VITALS: RESP 18; TEMP 97.6
[2022-01-01] MEDS ORDERED: KETAMINE 10 MG/ML 20 ML VIAL ONE (12:12)
[2022-01-01] MEDS ORDERED: LIDOCAINE 2% INJ 20 MG/ML (2 ML VIAL) ONE (12:12)
[2022-01-01] MEDS ORDERED: fentaNYL (PF) 50 MCG/ML 2 ML AMP ONE (12:12)
[2022-01-01] MEDS ORDERED: MIDAZOLAM 2 MG/2 ML VIAL ONE (12:12)
[2022-01-01] MEDS ORDERED: PROPOFOL 10 MG/ML 20 ML VIAL IV ONE (12:12)
[2022-01-01] MEDS ORDERED: LIDOCAINE 2% INJ 20 MG/ML INTRATRACH ONE ×2 (12:16→12:20)
[2022-01-01 13:08] VITALS: BP 148/87; PULSE 66
== END 2022-01-01 13:16 | disposition home or self-care (01) ==
LOC: ORWHC2ENDO 10:59
PROVIDERS: ATTEND Internal Medicine Critical Care Medicine
DX: J39.8 Other specified diseases of upper respiratory tract (principal); R91.8 Other nonspecific abnormal finding of lung field; J44.9 Chronic obstructive pulmonary disease, unspecified; M85.80 Other specified disorders of bone density and structure, unspecified site; F41.9 Anxiety disorder, unspecified; M19.90 Unspecified osteoarthritis, unspecified site; F17.210 Nicotine dependence, cigarettes, uncomplicated; Z79.899 Other long term (current) drug therapy; Z88.5 Allergy status to narcotic agent; Z85.3 Personal history of malignant neoplasm of breast; Z98.890 Other specified postprocedural states; Z98.42 Cataract extraction status, left eye; Z98.41 Cataract extraction status, right eye; Z80.7 Family history of other malignant neoplasms of lymphoid, hematopoietic and related tissues; Z80.3 Family history of malignant neoplasm of breast; Z80.49 Family history of malignant neoplasm of other genital organs
CPT/HCPCS: 31622; J2001 ×2; J2250; J3010; J2704; 31624

== ENCOUNTER → 2022-01-09 | Outpatient (CLI) | payer MEDICARE, BC | END | disposition home or self-care (01) | LOC: LABWHC1 09:12 | PROVIDERS: ATTEND Psychiatry & Neurology Neurology | DX: Z53.9 Procedure and treatment not carried out, unspecified reason (principal) ==

== ENCOUNTER → 2022-02-06 | Outpatient (CLI) | payer MEDICARE, BC ==
--- NOTE | 2022-01-01 13:26 | P.PCN ---
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 The procedure was done in the endoscopy suite. A timeout was obtained. The sedation was provided by anesthesia. After achieving adequate sedation, the flexible bronchoscope was inserted to the right nostril was advanced with upper airway. Examination of the posterior oropharynx, and larynx showed no acute abnormalities. The posterior pharyngeal structures were within normal limits. Epiglottis was identified. It was sharp in the midline. The vallecula, arytenoids and the vocal cords were then inspected and the vocal cord structure, anatomy and function was all within normal limits. A total of 2 mL of 1% lidocaine was applied to the vocal cords and following that the bronchoscope was advanced into the upper trachea. Immediately, there was evidence of multiple submucosal osteocartilaginous nodules projecting into the lumen of the trachea. At the nodules emily from the anterior and lateral aspect of the and her trachea and it was essentially sparing the membranous trachea. The nodules became less abundant in the mid and the lower trachea. The bilateral mainstem bronchi, right upper lobe bronchus, bronchus intermedius, right middle lobe bronchus and right lower lobe bronchus along with 10 segments on the right, and left mainstem bronchus, left upper lobe and left lower lobe bronchus and the various 8 segments on the left lower patent with a normal limits. No other significant abnormalities identified. No foreign bodies. No endobronchial lesions or tumors. 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
--- NOTE | 2022-02-06 13:31 | MM ---
Reason for Exam: Screening (asymptomatic). Last screening mammogram was performed 12 month(s) ago. Patient History: Menarche at age 11. Patient has no children. Postmenopausal. Breast cancer, right, age 53. Estrogen for 9 years, 2 months, from age 44 until age 53. Progesterone for 9 years, 2 months, from age 44 until age 53. 05/11/2009, Malignant Excisional Biopsy on the right side. 04/30/2009, Malignant Core Biopsy on the right side. 12/24/1998, Benign Stereotactic Core Biopsy on the left side. 2008, Radiation Therapy on the right side. Paternal aunt had breast cancer at or over age 50. Prior Study Comparison: 01/28/2019 Bilateral Diagnostic Mammogram, [facility]. 02/01/2020 Bilateral Diagnostic Mammogram, [facility]. 02/05/2021 Bilateral Diagnostic Mammogram, [facility]. Tissue Density: There are scattered fibroglandular densities. Findings: Analyzed By CAD. Diminished size right breast with distortion along with dystrophic calcification and surgical clips in the posterior upper-outer aspect right breast redemonstrated. There is mammotome biopsy clip in the left breast again seen. There is no suspicious group of microcalcifications or new suspicious mass in either breast. Overall Assessment: Benign, BI-RAD 2 Management: Screening Mammogram of both breasts in 1 year. A clinical breast exam by your physician is recommended on an annual basis and results should be correlated with mammographic findings. Electronically signed and approved by: Taco Peters M.D.
== END | disposition home or self-care (01) ==
LOC: RADMAMWWP 10:01
PROVIDERS: ATTEND Internal Medicine Hematology & Oncology
DX: Z12.31 Encounter for screening mammogram for malignant neoplasm of breast (principal); Z78.0 Asymptomatic menopausal state; Z80.3 Family history of malignant neoplasm of breast
CPT/HCPCS: 77063; 77067

== ENCOUNTER → 2023-02-09 | Outpatient (CLI) | payer MEDICARE, BC ==
--- NOTE | 2023-02-10 08:02 | MM ---
Reason for Exam: Screening (asymptomatic). Last screening mammogram was performed 12 month(s) ago. Patient History: Menarche at age 11. Patient has no children. Postmenopausal. Breast cancer, right, age 53. Estrogen for 9 years, 2 months, from age 44 until age 53. Progesterone for 9 years, 2 months, from age 44 until age 53. 05/11/2009, Malignant Excisional Biopsy on the right side. 04/30/2009, Malignant Core Biopsy on the right side. 12/24/1998, Benign Stereotactic Core Biopsy on the left side. 2008, Radiation Therapy on the right side. Paternal aunt had breast cancer at or over age 50. Prior Study Comparison: 02/01/2020 Bilateral Diagnostic Mammogram, [facility]. 02/05/2021 Bilateral Diagnostic Mammogram, [facility]. 02/06/2022 Bilateral MG 3D screening mammo w/cad, [facility]. Tissue Density: There are scattered fibroglandular densities. Findings: Analyzed By CAD. There is no suspicious group of microcalcifications or new suspicious mass in either breast. Postsurgical changes right axilla. Overall Assessment: Benign, BI-RAD 2 Management: Screening Mammogram of both breasts in 1 year. . Patient should continue monthly self-breast exams. A clinical breast exam by your physician is recommended on an annual basis. This exam should not preclude additional follow-up of suspicious palpable abnormalities. Note on Sri scores and lifetime risk: 1. A Sri score greater than 3% is considered moderate risk. If this is the case, consider specialist referral to assess eligibility for a risk reducing agent. 2. If overall lifetime risk for the development of breast cancer is 20% or higher, the patient may qualify for future screening with alternating mammogram and breast MRI. Electronically signed and approved by: Baldo Singer M.D. Radiologis
== END | disposition home or self-care (01) ==
LOC: RADMAMWWP 12:43
PROVIDERS: ATTEND Family Medicine
DX: Z12.31 Encounter for screening mammogram for malignant neoplasm of breast (principal); Z85.3 Personal history of malignant neoplasm of breast; Z80.3 Family history of malignant neoplasm of breast
CPT/HCPCS: 77063; 77067

== ENCOUNTER → 2023-02-17 | Outpatient (CLI) | payer MEDICARE, BC ==
--- NOTE | 2023-02-17 13:07 | CA ---
Transthoracic Echo Report Name: Debbie Cantrell Age: 67 Gender: F : 1955 Exam Date: 02/17/2023 11:17 Exam Location: [facility] Ht (in): 65 Wt (lb): 168 Ordering Physician: Cordell Jacques DO Attending/Referring Phys: Cordell Jacques DO Sonographer Cayla Valentin RDCS Procedure CPT: Indications: R0789 Cardiac Hx: Technical Quality: Fair Contrast 1: Total Dose (mL): Contrast 2: Total Dose (mL): MEASUREMENTS (Male / Female) Normal Values 2D ECHO LV Diastolic Diameter PLAX 4.3 cm 4.2 - 5.9 / 3.9 - 5.3 cm LV Systolic Diameter PLAX 3.5 cm IVS Diastolic Thickness 1.5 cm 0.6 - 1.0 / 0.6 - 0.9 cm LVPW Diastolic Thickness 1.5 cm 0.6 - 1.0 / 0.6 - 0.9 cm LV Relative Wall Thickness 0.7 RV Internal Dim ED PLAX 2.8 cm LV Diastolic Volume MOD BP 79.9 cm??? 67 - 155 / 56 - 104 cm??? LV Systolic Volume MOD BP 43.4 cm??? 22 - 58 / 19 - 49 cm??? LV Ejection Fraction MOD BP 45.7 % >= 55 % LV Cardiac Index MOD BP 1547.7 cm???/min???m??? LV Diastolic Volume MOD 4C 77.4 cm??? LV Systolic Volume MOD 4C 38.3 cm??? LV Ejection Fraction MOD 4C 50.6 % LV Cardiac Index MOD 4C 1657.4 cm???/min???m??? LV Diastolic Length 4C 6.8 cm LV Systolic Length 4C 6.6 cm LV Diastolic Volume MOD 2C 75.9 cm??? LV Systolic Volume MOD 2C 40.8 cm??? LV Ejection Fraction MOD 2C 46.2 % LV Cardiac Index MOD 2C 1484.5 cm???/min???m??? LV Diastolic Length 2C 6.2 cm LV Systolic Length 2C 5.2 cm LA Volume 53.2 cm??? 18 - 58 / 22 - 52 cm??? M-MODE Aortic Root Diameter MM 2.7 cm LA Systolic Diameter MM 2.9 cm LA Ao Ratio MM 1.1 AV Cusp Separation MM 1.8 cm DOPPLER AV Peak Velocity 131.7 cm/s AV Peak Gradient 6.9 mmHg AV Mean Velocity 92.1 cm/s AV Mean Gradient 3.8 mmHg AV Velocity Time Integral 23.5 cm LVOT Peak Velocity 74.0 cm/s LVOT Peak Gradient 2.2 mmHg LVOT Velocity Time Integral 15.3 cm MV Area PHT 4.9 cm??? Mitral E Point Velocity 63.6 cm/s Mitral A Point Velocity 129.4 cm/s Mitral E to A Ratio 0.5 MV Deceleration Time 156.1 ms MV E' Velocity 5.4 cm/s Mitral E to MV E' Ratio 11.9 TR Peak Velocity 183.7 cm/s TR Peak Gradient 13.5 mmHg Right Ventricular Systolic Press 18.5 mmHg FINDINGS Left Ventricle Moderately increased left ventricular wall thickness. Mildly decreased left ventricular ejection fraction. Left ventricular ejection fraction is estimated at 45-50 %.left ventricular cavity size normal. Right Ventricle Normal right ventricular size and function. Right ventricular systolic pressure within normal limits. Right Atrium Normal right atrial size. Left Atrium Mildly increased left atrial volume. Mitral Valve Structurally normal mitral valve. Moderate mitral regurgitation. Mild thickening of the leaflets Aortic Valve Trileaflet aortic valve. No aortic valve stenosis or regurgitation. Tricuspid Valve Structurally normal tricuspid valve. Mild tricuspid regurgitation. Pulmonic Valve Structurally normal pulmonic valve. Pericardium No pericardial effusion. Aorta Normal size aortic root and proximal ascending aorta. CONCLUSIONS 1. Mildly impaired left ventricle systolic function with no segmental wall motion abnormality 2. Moderate mitral with mild tricuspid regurgitation and no pulmonary hypertension Previewed by: Dr. Liliana Pereyra MD (Electronically Signed) Final Date: 17 February 2023 13:06
== END | disposition home or self-care (01) ==
LOC: RADECHMAIN 11:03
PROVIDERS: ATTEND Family Medicine
DX: I08.1 Rheumatic disorders of both mitral and tricuspid valves (principal); R07.89 Other chest pain
CPT/HCPCS: 93306

== ENCOUNTER → 2023-02-25 | Outpatient (CLI) | payer MEDICARE, BC ==
--- NOTE | 2023-02-25 11:55 | MM ---
Reason for Exam: Clinical finding. Last screening mammogram was performed less than 1 month ago. Patient History: Menarche at age 11. Patient has no children. Postmenopausal. Breast cancer, right, age 53. Estrogen for 9 years, 2 months, from age 44 until age 53. Progesterone for 9 years, 2 months, from age 44 until age 53. 05/11/2009, Malignant Excisional Biopsy on the right side. 04/30/2009, Malignant Core Biopsy on the right side. 12/24/1998, Benign Stereotactic Core Biopsy on the left side. 2008, Radiation Therapy on the right side. Paternal aunt had breast cancer at or over age 50. Prior Study Comparison: 02/05/2021 Bilateral Diagnostic Mammogram, [facility]. 02/06/2022 Bilateral MG 3D screening mammo w/cad, [facility]. 02/09/2023 Bilateral MG 3D screening mammo w/cad, [facility]. Tissue Density: Right: There are scattered fibroglandular densities. Findings: Analyzed By CAD. Postsurgical changes are in the upper outer quadrant right posterior breast surgical clips and calcifications are present. No underlying spiculated or lobular masses evident. There is report of "thickening" in this region. No mammographic abnormality is evident. Overall Assessment: Incomplete: need additional imaging evaluation, BI-RAD 0 Management: Diagnostic Breast Ultrasound of the right breast. A negative mammogram report should not preclude additional follow up of suspicious palpable abnormalities. Patient should continue monthly self breast exam. A clinical breast exam by your physician is recommended on an annual basis and results should be correlated with mammographic findings. Electronically signed and approved by: Narayan Reyes D.O. Radiologis
== END | disposition home or self-care (01) ==
LOC: RADMAMWWP 08:45
PROVIDERS: ATTEND Internal Medicine Hematology & Oncology
DX: N63.11 Unspecified lump in the right breast, upper outer quadrant (principal); Z78.0 Asymptomatic menopausal state; Z80.3 Family history of malignant neoplasm of breast; Z85.3 Personal history of malignant neoplasm of breast
CPT/HCPCS: 77065; G0279; 77061

== ENCOUNTER → 2023-02-26 | Outpatient (CLI) | payer MEDICARE, BC ==
--- NOTE | 2023-02-26 15:29 | USB ---
Reason for Exam: Clinical finding. Patient History: Menarche at age 11. Patient has no children. Postmenopausal. Breast cancer, right, age 53. Estrogen for 9 years, 2 months, from age 44 until age 53. Progesterone for 9 years, 2 months, from age 44 until age 53. 05/11/2009, Malignant Excisional Biopsy on the right side. 04/30/2009, Malignant Core Biopsy on the right side. 12/24/1998, Benign Stereotactic Core Biopsy on the left side. 2008, Radiation Therapy on the right side. Paternal aunt had breast cancer at or over age 50. Technique: Method: Whole Breast Handheld. Prior Study Comparison: 02/06/2022 Bilateral MG 3D screening mammo w/cad, [facility]. 02/09/2023 Bilateral MG 3D screening mammo w/cad, [facility]. 02/25/2023 Right MG 3D diag mammo w/cad RT, [facility]. Findings: The whole breast of the right breast, the axilla of the right breast and the retroareolar of the right breast were scanned. A complete US of all four quadrants of the breast , axilla, and retro-areolar region were reviewed. Extensive scarring and fat necrosis calcifications as well as surgical clips are noted at the 11:00 site of excisional scar. Otherwise, no solid or cystic lesion or axillary lymphadenopathy. Overall Assessment: Benign, BI-RAD 2 Management: Screening Mammogram of both breasts in 1 year. Further clinical management of any suspicious palpable abnormalities. A clinical breast exam by your physician is recommended on an annual basis. Patient should continue monthly self breast exams. Results were given to the patient verbally at the time of exam. Electronically signed and approved by: Kesha Graf M.D. Radiologist
== END | disposition home or self-care (01) ==
LOC: RADUSWWP 09:49
PROVIDERS: ATTEND Internal Medicine Hematology & Oncology
DX: R92.8 Other abnormal and inconclusive findings on diagnostic imaging of breast (principal); Z78.0 Asymptomatic menopausal state; Z80.3 Family history of malignant neoplasm of breast

== ENCOUNTER → 2023-03-11 | Outpatient (CLI) | payer MEDICARE, BC ==
--- NOTE | 2023-03-11 10:18 | CTL ---
EXAMINATION TYPE: CT Low Dose Lung DATE OF EXAM ORDERED: 03/11/2023 HISTORY: Z12.2. Current smoker, 49 pack year history. Lung cancer screening CT DLP: 86.[address] CTDI: 2.50 mGy Automated exposure control for dose reduction was used. SCREENING VISIT: Follow-up COMPARISON: CT low-dose lung cancer screening 11/07/2021 TECHNIQUE: Low dose computed tomography scan was performed through the chest at 1 mm thick sections a nd reconstructed images in multiple planes at 1 mm and [address] DIAGNOSTIC QUALITY: Satisfactory FINDINGS: LUNG NODULES: Stable lateral right upper lobe 2 mm pulmonary nodule (series 4, image 62). Stable righ t apical triangular nodular density measuring up to 5 mm (series 4, image 45). No new or enlarging pu lmonary nodules. LUNGS: COPD: Severity: Minimal Fibrosis: Severity: Minimal pleural-based fibrotic changes the anterolateral aspect of the right uppe r lobe which may represent posttreatment changes. Lymph nodes: None Other findings: None RIGHT PLEURAL SPACE: Effusion: None Calcification: None Thickening: None Pneumothorax: None LEFT PLEURAL SPACE: Effusion: None Calcification: None Thickening: None Pneumothorax: None HEART: Heart Size: Normal Coronary Calcification: Moderate Pericardial Effusion: None OTHER FINDINGS: Upper abdomen: Stable right adrenal lipid rich adenoma measuring 2.7 cm. Bony thorax: No acute osseous abnormalities. Mild multilevel degenerative changes of the thoracic spi ne. Supraclavicular region: None Other: Postsurgical changes of the right breast. Stable ectasia of the ascending thoracic aorta measu ring up to 3.9 cm. Less prominent appearance of irregular nodular soft tissue thickening of the left anterior aspect of the upper to mid trachea. IMPRESSION: Stable few pulmonary nodules measuring up to 5 mm. No new or enlarging pulmonary nodules. CT LUNG RAD AND CT CHEST RECOMMENDATION: Lung-Rad 2 Benign Appearance or Behavior: Continue annual sc reening with LDCT in 12 months. S Modifier (other clinically significant findings): None
== END | disposition home or self-care (01) ==
LOC: RADCTMAIN 09:07
PROVIDERS: ATTEND Internal Medicine Critical Care Medicine
DX: Z12.2 Encounter for screening for malignant neoplasm of respiratory organs (principal); F17.210 Nicotine dependence, cigarettes, uncomplicated; R91.8 Other nonspecific abnormal finding of lung field
CPT/HCPCS: 71271

== ENCOUNTER → 2023-06-30 | Outpatient (CLI) | payer MEDICARE, BC ==
--- NOTE | 2023-06-30 10:29 | XR ---
EXAMINATION TYPE: XR cervical spine comp DATE OF EXAM: 06/30/2023 CLINICAL HISTORY: pain COMPARISON: NONE TECHNIQUE: Frontal, lateral, oblique, swimmers, and open mouth view of the cervical spine are obtaine d. FINDINGS: The cervical spine is visualized in its entirety from C1 thru the top of T1 level. It is s atisfactory in alignment without evidence of acute fracture or dislocation. The pre-vertebral soft t issue appears within normal limits. Moderate multilevel degenerative disc space narrowing with ventra l spondylosis. Neural foraminal encroachment is seen bilaterally at C4-5. The C1-C2 articulation is u nremarkable on the open mouth view. IMPRESSION: No acute fracture or dislocation is seen in the cervical spine.ICD 10 NO FRACTURE, INITI AL EVALUATION
== END | disposition home or self-care (01) ==
LOC: RADXRMAIN 09:26
PROVIDERS: ATTEND Family Medicine
DX: M54.2 Cervicalgia (principal)
CPT/HCPCS: 72050

== ENCOUNTER → 2023-07-23 | Outpatient (CLI) | payer MEDICARE, BC ==
--- NOTE | 2023-07-26 22:29 | MR ---
EXAMINATION TYPE: MR cervical spine wo con DATE OF EXAM: 07/23/2023 COMPARISON: Radiograph 06/30/2023 HISTORY: 68-year-old female M99.71, Neck pain x7 months, Hx Breast cancer TECHNIQUE: Multiplanar, multisequence images of the cervical spine were acquired without contrast. FINDINGS: There appears to be opacification within the sphenoid sinus. No craniocervical junction antibody, predental space widening, or prevertebral soft tissue swelling. Multilevel variable mild intervertebral disc desiccation. Mild disc space narrowing C5-C6 with small disc osteophyte complex formation. There is some straightening of the normal cervical lordosis but otherwise of preserved alignment. Scattered facet and uncovertebral joint arthropathy is present throughout. Small disc osteophyte complex at C5-C6 impresses on the ventral thecal sac without significant spinal canal stenosis. No large focal disc herniation or significant spinal canal stenosis. Normal course, caliber, and signal intensity of the cervical spinal cord. At C4-C5, facet and uncovertebral joint arthropathy results in mild right neuroforaminal stenosis. At C5-C6, uncovertebral joint and facet arthropathy contribute to mild right neural foraminal stenosi s. At C6-C7, uncovertebral joint and facet arthropathy contributes to mild right neuroforaminal stenosis . No suspicious bone marrow replacement. IMPRESSION: 1. Mild multilevel degenerative disc disease, moderate at C5-C6. Disc osteophyte complex impresses on to the ventral thecal sac here but without any significant spinal canal stenosis. 2. Multilevel facet and uncovertebral joint arthropathy. Changes result in mild right neuroforaminal stenosis from C4 through C7 levels.
== END | disposition home or self-care (01) ==
LOC: RADMRIMAIN 06:46
PROVIDERS: ATTEND Family Medicine
DX: M99.71 Connective tissue and disc stenosis of intervertebral foramina of cervical region (principal); M50.322 Other cervical disc degeneration at C5-C6 level; M25.78 Osteophyte, vertebrae; M47.812 Spondylosis without myelopathy or radiculopathy, cervical region; Z85.3 Personal history of malignant neoplasm of breast
CPT/HCPCS: 72141

== ENCOUNTER → 2024-03-04 | Outpatient (CLI) | payer MEDICARE, BC, OTHER ==
--- NOTE | 2024-03-04 13:20 | MM ---
Reason for Exam: Additional evaluation requested from prior study. Last screening mammogram was performed 12 month(s) ago. Patient History: Menarche at age 11. Patient has no children. Postmenopausal. Breast cancer, right, age 53. Estrogen for 9 years, 2 months, from age 44 until age 53. Progesterone for 9 years, 2 months, from age 44 until age 53. 05/11/2009, Malignant Excisional Biopsy on the right side. 04/30/2009, Malignant Core Biopsy on the right side. 12/24/1998, Benign Stereotactic Core Biopsy on the left side. 2008, Radiation Therapy on the right side. Paternal aunt had breast cancer at or over age 50. Tissue Density: There are scattered areas of fibroglandular density. Findings: Analyzed By CAD. Postsurgical and posttreatment change posterior upper outer quadrant right breast with areas of fat necrosis redemonstrated. Microclip upper outer quadrant left breast from prior biopsy. On the left XCCL view, asymmetric density lateral and posteriorly is unchanged from 02/01/2020. No significant change from prior exams. Overall Assessment: Benign, BI-RAD 2 Management: Screening Mammogram of both breasts in 1 year. . Results were given to the patient verbally at the time of exam. Patient should continue monthly self-breast exams. A clinical breast exam by your physician is recommended on an annual basis. This exam should not preclude additional follow-up of suspicious palpable abnormalities. Electronically signed and approved by: Kesha Graf M.D. Radiologist
--- NOTE | 2024-03-05 19:09 | BD ---
EXAMINATION TYPE: Axial Bone Density DATE OF EXAM: 03/04/2024 CLINICAL HISTORY: 68 years old Female. ICD-10 CODE: M81.0 BD Height: 63 Weight: 163 FRAX RISK QUESTIONS: Family History (Parent hip fracture): no History of Fracture in Adulthood: no Secondary Osteoporosis: yes 3. Menopause before 45: yes Current Tobacco Use: yes RISK FACTORS HISTORY OF: Surgery to Spine/Hip(right/left)/Wrist (right/left): no MEDICATIONS: Thyroid Medications: no Osteoporosis Medications: no EXAM MEASUREMENTS: Bone mineral densitometry was performed using the Status Overload System. Bone mineral density as measured about the Lumbar spine is: ----- L1-L4(G/cm2): 1.462 T Score Values are as follows: ----- L1: 1.1 ----- L2: 2.0 ----- L3: 3.0 ----- L4: 2.8 ----- L1-L4: 2.4 Z Score Values are as follows: ----- L1: 2.5 ----- L2: 3.4 ----- L3: 4.4 ----- L4: 4.1 ----- L1-L4: 3.7 Bone mineral density has: Increased 2.5% since study of: 04-09-2020 Bone mineral density about the R hip (g/cm2): 0.955 Bone mineral density about the L hip (g/cm2): 1.051 T Score values are as follows: -----R Neck: -1.4 -----L Neck: -0.3 -----R Total: -0.4 -----L Total: 0.3 Z Score values are as follows: -----R Neck: 0.1 -----L Neck: 1.2 -----R Total: 0.8 -----L Total: 1.6 Bone mineral density has: Increased 3.3% since study of: 04-09-2020 FRAX%s: The graph provided illustrates a 9.5% chance for a major osteoporotic fx and a 2.0% chance fo r the hips probability for fx in 10 years time. IMPRESSION: Osteopenia (T Score between -2.5 and -1). There is slightly increased risk of fracture and the patient may be considered for treatment. Re-Screen 2-5 years. NOTE: T-SCORE=SD OF THE YOUNG ADULT MEAN.
== END | disposition home or self-care (01) ==
LOC: RADMAMWWP 12:48
PROVIDERS: ATTEND Family Medicine
DX: Z85.3 Personal history of malignant neoplasm of breast (principal); M85.88 Other specified disorders of bone density and structure, other site; Z78.0 Asymptomatic menopausal state; Z80.3 Family history of malignant neoplasm of breast
CPT/HCPCS: 77080; 77066; G0279; 77062

== ENCOUNTER → 2024-03-22 | Outpatient (CLI) | payer MEDICARE, BC, OTHER ==
[2024-03-22 10:32] VITALS: BP 155/90; PULSE 61; RESP 17; TEMP 98.1
--- NOTE | 2024-03-22 11:30 | P.HPOB ---
History of Present Illness H&P Date: 03/22/24 Chief Complaint: The patient is here for her routine gynecologic exam. This is a 68-year-old -0-1-0 with an LMP of approximately 2009. The patient is here to establish with this office. She previously saw Dr. Topete for her gynecologic care. It has been about 1 to 2 years since she was last seen by him. She states she saw him regularly and did have regular cervical cancer screening. She denies any history of cervical cancer or precancerous changes. She is without gynecologic complaints and denies any postmenopausal bleeding. Review of Systems The patient's weight has been stable over the last year. She denies respiratory, cardiac, or G.I. problems. Past Medical History Past Medical History: Cancer, Osteoarthritis (OA) Additional Past Medical History / Comment(s): pt states "spot on the trachea shown on CT scan", left eye cataract,rt breast cancer 2010-(lumpectomy and radiation tx), environmental allergies. Early dementia. varicose veins. Osteopenia. PAST ORTHOPAEDIC DOCTOR HISTORY: She has no history of STDs. History of Any Multi-Drug Resistant Organisms: None Reported Past Surgical History: Breast Surgery, Orthopedic Surgery Additional Past Surgical History / Comment(s): rt cataract,lt shoulder surgery, rt breast lumpectomy-later hematoma removed, rt carpel tunnel,cyst on spine removed. VTP. Colonoscopy (?year) Past Anesthesia/Blood Transfusion Reactions: No Reported Reaction Additional Past Anesthesia/Blood Transfusion Reaction / Comment(s): b/p ran high after a surgery Past Psychological History: No Psychological Hx Reported Smoking Status: Current every day smoker ( 5 to 10 cigarettes/day.) Past Alcohol Use History: Occasional (About 10 drinks per week.) Additional Past Alcohol Use History / Comment(s): smokes approx 10 cigarettes daily, has smoked for >25 yrs, drinks around 10 drinks per week Past Drug Use History: None Reported Additional History: She is and this is her second marriage. She is retired. She previously worked in the operating room at [employer] - Past Family History Mother Family Medical History: Cancer Additional Family Medical History / Comment(s): [place]. She is uncertain of what type of cancer she had Father Family Medical History: Congestive Heart Failure (CHF) Additional Family Medical History / Comment(s): heart problems. . Medications and Allergies Home Medications Medication Instructions Recorded Confirmed Type Calcium Carbonate/Vitamin D3 1 each PO DAILY 06/09/16 03/22/24 History [Calcium 600-Vit D3 800 Tab] Cetirizine HCl/Pseudoephedrine 1 each PO DAILY 06/09/16 03/22/24 History [Zyrtec-D Tablet] Multivitamins, Thera [Multivitamin 1 tab PO DAILY 12/11/21 03/22/24 History (formulary)] Allergies Allergy/AdvReac Type Severity Reaction Status Date / Time codeine AdvReac Nausea Verified 03/22/24 10:29 Exam Vital Signs Temp Pulse Resp BP Pulse Ox 03/22/24 10:30 98.1 F 61 17 155/90 98 Intake and Output 03/21/24 03/22/24 03/22/24 22:59 06:59 14:59 Other: Weight 74.843 kg Height 5 feet 4 inches, weight 165 pounds, BMI 28.3. This is a well-developed well-nourished white female who is alert and oriented times 3 in no acute distress. HEENT: Within normal limits. NECK: Supple without mass or thyromegaly. CHEST AND LUNGS: Clear to auscultation. HEART: Regular rate and rhythm. BREASTS: The right breast is consistent with a previous lumpectomy from appro ximately the 10 o'clock position at the periphery of the breast. This area is dimpled at this position and there is some firmness in this area consistent with her lumpectomy with radiation therapy. The patient states she has not noticed any changes in this area. There are no other abnormalities noted and there is no nipple discharge. AXILLARY EXAM: Negative for adenopathy. BACK: Negative for CVA tenderness. ABDOMEN: Soft, nontender, without palpable masses. PELVIC EXAM: Normal external genitalia with mild to moderate atrophy. Cervix and vagina appear normal with mild atrophy. There is no unusual discharge. There is no evidence of prolapse. The uterus is midposition, nongravid size and nontender. There are no palpable adnexal masses or tenderness. RECTAL EXAM: Rectovaginal exam is negative for mass or tenderness and is negative for occult blood. EXTREMITIES: Nontender. IMPRESSION: 1. 68-year-old menopausal female with normal gynecologic exam. 2. History of right breast cancer status post lumpectomy and radiation therapy in approximately 2010. No evidence of recurrence on exam today. 3. History of osteopenia. 4. Elevated blood pressure. PLAN: 1. Pap smear was performed. The patient states she has no history of cervical abnormalities and has been adequately screened through Dr. Topete over the years. If this Pap smear is negative, we will plan on discontinuing Pap smears. 2. Self breast awareness was discussed with the patient. We have also discussed symptoms associated with inflammatory breast cancer. 3. Diagnostic mammogram was done on 03/04/2024 and was benign. She will repeat this after 1 year. 4. Osteoporosis prevention was discussed. I have stressed the importance of adequate calcium, vitamin D and regular exercise. Recommended amounts of calc ium and vitamin D were also discussed. Bone density test done on 03/04/2024 showed osteopenia. We will repeat this in approximately 2 to 3 years. 5. We have discussed her elevated blood pressure. I have recommended that she check her own blood pressures at home since she does have her own blood pressure cuff. She will do this on a regular basis and to follow-up with her PCP for blood pressure elevations. 6. She was advised to return in one year for her annual well woman exam.
== END ==
LOC: WWCWWP 09:39
PROVIDERS: ATTEND Obstetrics & Gynecology
DX: Z01.419 Encounter for gynecological examination (general) (routine) without abnormal findings (principal); R03.0 Elevated blood-pressure reading, without diagnosis of hypertension; M85.80 Other specified disorders of bone density and structure, unspecified site; Z78.0 Asymptomatic menopausal state; Z85.3 Personal history of malignant neoplasm of breast; Z48.817 Encounter for surgical aftercare following surgery on the skin and subcutaneous tissue; Z92.3 Personal history of irradiation; Z87.891 Personal history of nicotine dependence; Z88.5 Allergy status to narcotic agent

== ENCOUNTER 2024-09-19 13:47 | Emergency (ER) | payer MEDICARE, BC, OTHER ==
[2024-09-19 14:25] VITALS: BP 146/88; PULSE 109; RESP 20; TEMP 98.5
[2024-09-19 14:45] LABS: Basophils % (A) 1 %; Eosinophils # (A) 0.3 k/uL (0-0.7); Eosinophils % (A) 5 %; HCT 45.7 % (34.0-46.0); Lymphocytes # (A) 1.5 k/uL (1.0-4.8); Lymphocytes % (A) 22 %; MCH 31.6 pg (25.0-35.0); MCHC 32.9 g/dL (31.0-37.0); MCV 96.1 fL (80.0-100.0); Mean Platelet Volume 7.1; Monocytes # (A) 0.3 k/uL (0-1.0); Monocytes % (A) 4 %; Neutrophils # (A) 4.7 k/uL (1.3-7.7); Neutrophils % (A) 69 %; Platelet Count 248 k/uL (150-450); RBC 4.75 m/uL (3.80-5.40); RDW 12.7 % (11.5-15.5); WBC 6.8 k/uL (3.8-10.6)
[2024-09-19 15:09] LABS: ALT 35 U/L (4-34); AST 24 U/L (14-36); African American GFR (CKD) 87 (>60 ml/min/1.73 sqM); Albumin 4.4 g/dL (3.5-5.0); Alkaline Phosphatase 54 U/L (38-126); Anion Gap 9 mmol/L; Blood Urea Nitrogen 19 mg/dL (7-17); Carbon Dioxide 27 mmol/L (22-30); Chloride 104 mmol/L (98-107); Glucose 112 mg/dL (74-99); Non-African American GFR(CKD) 75 (>60 ml/min/1.73 sqM); Potassium 4.7 mmol/L (3.5-5.1); Sodium 140 mmol/L (137-145); Total Bilirubin 0.9 mg/dL (0.2-1.3); Total Protein 7.1 g/dL (6.3-8.2)
[2024-09-19 15:13] LABS: Partial Thromboplastin Time 23.5 sec (22.0-30.0); Prothrombin Time 10.6 sec (10.0-12.5)
--- NOTE | 2024-09-19 16:13 | ED ---
General Adult HPI - General Chief complaint: Shortness of Breath Stated complaint: pnemonia Time Seen by Provider: 09/19/24 16:00 Source: patient, family, RN notes reviewed, old records reviewed Mode of arrival: ambulatory Limitations: no limitations - History of Present Illness Initial comments: This is a 69-year-old female who presents to the emergency department stating for the last 2 weeks at 3:00 in the morning she wakes up and she feels short of breath. Patient states he will usually last for couple hours and then it subsides. Patient states she has had no chest pain she has had no palpitations. Patient denies any recent fever chills or cough. Patient has any sore throat or congestion. Patient denies abdominal pain patient has nausea vomiting diarrhea. Patient denies any headache patient denies numbness weakness. states she does take Ativan at night for anxiety and she does have some dementia. Patient currently has no symptoms whatsoever. Patient states she has been a smoker for over 50 years and continues to smoke now. - Related Data Home Medications Medication Instructions Recorded Confirmed Calcium Carbonate/Vitamin D3 1 tab PO DAILY 06/09/16 09/19/24 [Calcium 600-Vit D3 800 Tab] Cetirizine HCl/Pseudoephedrine 1 tab PO DAILY 06/09/16 09/19/24 [Zyrtec-D Tablet] Multivitamins, Thera [Multivitamin 1 tab PO DAILY 12/11/21 09/19/24 (formulary)] Donepezil HCl [Aricept ODT] 10 mg PO BID 09/19/24 09/19/24 LORazepam [Ativan] 1 mg PO HS 09/19/24 09/19/24 Previous Rx's Medication Instructions Recorded Furosemide [Lasix] 20 mg PO DAILY #10 tab 09/19/24 Potassium Chloride ER [K-Dur 10] 10 meq PO DAILY #10 tab 09/19/24 Allergies Allergy/AdvReac Type Severity Reaction Status Date / Time codeine AdvReac Nausea Verified 09/19/24 16:31 Review of Systems ROS Statement: Those systems with pertinent positive or pertinent negative responses have been documented in the HPI. ROS Other: All systems not noted in ROS Statement are negative. Past Medical History Past Medical History: Cancer, Osteoarthritis (OA) Additional Past Medical History / Comment(s): pt states "spot on the trachea shown on CT scan", left eye cataract,rt breast cancer 2010-(lumpectomy and radiation tx), environmental allergies. Early dementia. varicose veins. Osteopenia. 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 History of Any Multi-Drug Resistant Organisms: None Reported Past Surgical History: Breast Surgery, Orthopedic Surgery Additional Past Surgical History / Comment(s): rt cataract,lt shoulder surgery, rt breast lumpectomy-later hematoma removed, rt carpel tunnel,cyst on spine removed. VTP. Colonoscopy (?year) Past Anesthesia/Blood Transfusion Reactions: No Reported Reaction Additional Past Anesthesia/Blood Transfusion Reaction / Comment(s): b/p ran high after a surgery Past Psychological History: No Psychological Hx Reported Smoking Status: Current every day smoker Past Alcohol Use History: Abuse Past Drug Use History: None Reported - Past Family History Mother Family Medical History: Cancer Additional Family Medical History / Comment(s): [place]. She is uncertain of what type of cancer she had Father Family Medical History: Congestive Heart Failure (CHF) Additional Family Medical History / Comment(s): heart problems. . General Exam - General Exam Comments Initial Comments: GENERAL: Patient is well-developed and well-nourished. Patient is nontoxic and well- hydrated and is in no acute distress. ENT: Neck is soft and supple. No significant lymphadenopathy is noted. Oropharynx is clear. Moist mucous membranes. Neck has full range of motion without eliciting any pain. EYES: The sclera were anicteric and conjunctiva were pink and moist. Extraocular movements were intact and pupils were equal round and reactive to light. Eyelids were unremarkable. PULMONARY: Unlabored respirations. Good breath sounds bilaterally. No audible rales rhonchi or wheezing was noted. CARDIOVASCULAR: There is a regular rate and rhythm without any murmurs gallops or rubs. ABDOMEN: Soft and nontender with normal bowel sounds. SKIN: Skin is clear with no lesions or rashes and otherwise unremarkable. NEUROLOGIC: Patient is alert and oriented x3. Cranial nerves II through XII are grossly intact. Motor and sensory are also intact. Normal speech, volume and content. Symmetrical smile. MUSCULOSKELETAL: Normal extremities with adequate strength and full range of motion. LYMPHATICS: No significant lymphadenopathy is noted PSYCHIATRIC: Normal psychiatric evaluation. Limitations: no limitations Course Vital Signs 01/13/25 01/13/25 14:21 15:57 Temperature 98.5 F Pulse Rate 109 H Respiratory 20 20 Rate Blood Pressure 146/88 O2 Sat by Pulse 96 Oximetry Medical Decision Making - Medical Decision Making EKG is interpreted by myself EKG shows sinus tachycardia at 107 bpm VA 187 QRS 103 QT interval 334 QTc is 397. Patient's EKG shows no ST segment elevation or depression. Was pt. sent in by a medical professional or institution (, JIMMY, EXECUTIVE ASSOCIATE, urgent care, hospital, or residential...) When possible be specific @ -No Did you speak to anyone other than the patient for history (EMS, parent, family, police, friend...)? What history was obtained from this source @ -No Did you review nursing and triage notes (agree or disagree)? Why? @ -I reviewed and agree with nursing and triage notes Were old charts reviewed (outside hosp., previous admission, EMS record, old EKG, old radiological studies, urgent care reports/EKG's, residential records)? Report findings @ -Reviewed the chest x-ray from earlier today that was done at an urgent care. Showed pleural effusion on the right and pulmonary edema Differential Diagnosis? @ -Differential Dyspnea: Coronary syndrome, arrhythmia, tamponade, asthma, COPD, pulmonary embolism, pneumonia, pneumothorax, pulmonary effusion, anaphylaxis, diabetic ketoacidosis, flailed chest, pulmonary contusion, diaphragmatic rupture, anemia, neuromuscular, this is not meant to be an all-inclusive list. EKG interpreted by me (3pts min.). @ -As above X-rays interpreted by me (1pt min.). @ -Shows no acute abnormality CT interpreted by me (1pt min.). @ -None done U/S interpreted by me (1pt. min.). @ -None done What testing was considered but not performed or refused? (CT, X-rays, U/S, labs)? Why? @ -None What meds were considered but not given or refused? Why? @ -None Did you discuss the management of the patient with other professionals (professionals i.e. JIMMY Guillen, EXECUTIVE ASSOCIATE, lab, RT, psych nurse, social secretary, peoplesoft hrms developer, teacher, custody officer, case sealer)? Give summary @ -No Was smoking cessation discussed for >3mins.? @ -No Was critical care preformed (if so, how long)? @ -No Were there social determinants of health that impacted care today? How? (Homelessness, low income, unemployed, alcoholism, drug addiction, transportation, low edu. Level, literacy, decrease access to med. care, residential, rehab)? @ -No Was there de-escalation of care discussed even if they declined (Discuss DNR or withdrawal of care, Hospice)? DNR status @ -No What co-morbidities impacted this encounter? (DM, HTN, Smoking, COPD, CAD, Cancer, CVA, ARF, Chemo, Hep., AIDS, mental health diagnosis, sleep apnea, morbid obesity)? @ -None Was patient admitted / discharged? Hospital course, mention meds given and route, prescriptions, significant lab abnormalities, going to OR and other pertinent info. @ -Patient's acute pleural effusion and pulmonary edema patient was given Lasix in the emergency department patient did not want to stay for the workup. She stated she would workup the pulmonary edema and pleural effusion with Dr. Jacques. Undiagnosed new problem with uncertain prognosis? @ -No Drug Therapy requiring intensive monitoring for toxicity (Heparin, Nitro, Insulin, Cardizem)? @ -No Were any procedures done? @ -No Diagnosis/symptom? @ -Acute pulmonary edema Acute, or Chronic, or Acute on Chronic? @ -Acute Uncomplicated (without systemic symptoms) or Complicated (systemic symptoms)? @ -Complicated Side effects of treatment? @ -No Exacerbation, Progression, or Severe Exacerbation? @ -No Poses a threat to life or bodily function? How? (Chest pain, [place], [place], pneumonia, PE, COPD, DKA, ARF, appy, cholecystitis, CVA, Diverticulitis, Homicidal, Suicidal, threat to staff... and all critical care pts) @ -Yes this can lead to hypoxia and endorgan dysfunction Diagnosis/symptom? @ -Pleural effusion Acute, or Chronic, or Acute on Chronic? @ -Acute Uncomplicated (without systemic symptoms) or Complicated (systemic symptoms)? @ -Complicated Side effects of treatment? @ -None Exacerbation, Progression, or Severe Exacerbation] @ -No Poses a threat to life or bodily function? @ -No - Lab Data Result diagrams: 09/19/24 14:36 09/19/24 14:36 Lab Results 09/19/24 09/19/24 09/19/24 Range/Units 14:36 14:36 14:36 WBC 6.8 (3.8-10.6) k/uL RBC 4.75 (3.80-5.40) m/uL Hgb 15.0 (11.4-16.0) gm/dL Hct 45.7 (34.0-46.0) % MCV 96.1 (80.0-100.0) fL MCH 31.6 (25.0-35.0) pg MCHC 32.9 (31.0-37.0) g/dL RDW 12.7 (11.5-15.5) % Plt Count 248 (150-450) k/uL MPV 7.1 Neutrophils % 69 % Lymphocytes % 22 % Monocytes % 4 % Eosinophils % 5 % Basophils % 1 % Neutrophils # 4.7 (1.3-7.7) k/uL Lymphocytes # 1.5 (1.0-4.8) k/uL Monocytes # 0.3 (0-1.0) k/uL Eosinophils # 0.3 (0-0.7) k/uL Basophils # 0.0 (0-0.2) k/uL PT 10.6 (10.0-12.5) sec INR 1.0 (<1.2) APTT 23.5 (22.0-30.0) sec D-Dimer 0.62 H (<0.60) mg/L FEU Sodium 140 (137-145) mmol/L Potassium 4.7 (3.5-5.1) mmol/L Chloride 104 (98-107) mmol/L Carbon Dioxide 27 (22-30) mmol/L Anion Gap 9 mmol/L BUN 19 H (7-17) mg/dL Creatinine 0.80 (0.52-1.04) mg/dL Est GFR (CKD-EPI)AfAm 87 (>60 ml/min/1.73 sqM) Est GFR (CKD-EPI)NonAf 75 (>60 ml/min/1.73 sqM) Glucose 112 H (74-99) mg/dL Calcium 10.0 (8.4-10.2) mg/dL Total Bilirubin 0.9 (0.2-1.3) mg/dL AST 24 (14-36) U/L ALT 35 H (4-34) U/L Alkaline Phosphatase 54 (38-126) U/L Troponin I (0.000-0.034) ng/mL NT-Pro-B Natriuret Pep pg/mL Total Protein 7.1 (6.3-8.2) g/dL Albumin 4.4 (3.5-5.0) g/dL 09/19/24 09/19/24 Range/Units 14:36 14:36 WBC (3.8-10.6) k/uL RBC (3.80-5.40) m/uL Hgb (11.4-16.0) gm/dL Hct (34.0-46.0) % MCV (80.0-100.0) fL MCH (25.0-35.0) pg MCHC (31.0-37.0) g/dL RDW (11.5-15.5) % Plt Count (150-450) k/uL MPV Neutrophils % % Lymphocytes % % Monocytes % % Eosinophils % % Basophils % % Neutrophils # (1.3-7.7) k/uL Lymphocytes # (1.0-4.8) k/uL Monocytes # (0-1.0) k/uL Eosinophils # (0-0.7) k/uL Basophils # (0-0.2) k/uL PT (10.0-12.5) sec INR (<1.2) APTT (22.0-30.0) sec D-Dimer (<0.60) mg/L FEU Sodium (137-145) mmol/L Potassium (3.5-5.1) mmol/L Chloride (98-107) mmol/L Carbon Dioxide (22-30) mmol/L Anion Gap mmol/L BUN (7-17) mg/dL Creatinine (0.52-1.04) mg/dL Est GFR (CKD-EPI)AfAm (>60 ml/min/1.73 sqM) Est GFR (CKD-EPI)NonAf (>60 ml/min/1.73 sqM) Glucose (74-99) mg/dL Calcium (8.4-10.2) mg/dL Total Bilirubin (0.2-1.3) mg/dL AST (14-36) U/L ALT (4-34) U/L Alkaline Phosphatase (38-126) U/L Troponin I 0.021 (0.000-0.034) ng/mL NT-Pro-B Natriuret Pep 2200 pg/mL Total Protein (6.3-8.2) g/dL Albumin (3.5-5.0) g/dL Disposition Clinical Impression: Acute pulmonary edema, Pleural effusion Disposition: HOME SELF-CARE Condition: Fair Prescriptions: Potassium Chloride ER [K-Dur 10] 10 meq PO DAILY #10 tab Furosemide [Lasix] 20 mg PO DAILY #10 tab Is patient prescribed a controlled substance at d/c from ED?: No Referrals: Cordell Jacques DO [Primary Care Provider] - 1-2 days Time of Disposition: 17:35
[2024-09-19] MEDS: FUROSEMIDE 10 MG/ML 2 ML VIAL IV ONE (17:36)
== END 2024-09-19 17:43 | disposition home or self-care (01) ==
LOC: EC 13:47
DX: J81.0 Acute pulmonary edema (principal); J90 Pleural effusion, not elsewhere classified; F17.210 Nicotine dependence, cigarettes, uncomplicated; Z88.5 Allergy status to narcotic agent
CPT/HCPCS: 36415; 93005; 85379; 83880; 80053; 84484; 85025; 85610; 85730; 99285; 96374; J1940

== ENCOUNTER → 2024-11-07 | Outpatient (CLI) | payer MEDICARE, BC, OTHER ==
[2024-11-07 16:37] LABS: Chol/HDL Ratio 3.44 Ratio; LDL Cholesterol,Calculated 140.1 mg/dL (0.0-131.0)
[2024-11-07 16:38] LABS: ALT 20 U/L (8-44); AST 21 U/L (13-35); Albumin 4.2 g/dL (3.8-4.9); Albumin/Globulin Ratio 1.83 Ratio (1.60-3.17); Alkaline Phosphatase 51 U/L (41-126); Blood Urea Nitrogen 14.7 mg/dL (9.0-27.0); Calcium 9.5 mg/dL (8.7-10.3); Carbon Dioxide 25.8 mmol/L (21.6-31.8); Chloride 104 mmol/L (96-109); Globulin 2.3 g/dL (1.6-3.3); Glucose 98 mg/dL (70-110); Potassium 4.5 mmol/L (3.5-5.5); Sodium 140 mmol/L (135-145); Total Bilirubin 0.7 mg/dL (0.3-1.2); Total Protein 6.5 g/dL (6.2-8.2)
[2024-11-07 16:56] LABS: NT-Pro-B-Type Natriuretic Pept 1103 pg/mL (0-125)
== END | disposition home or self-care (01) ==
LOC: LABWHC1 08:23
PROVIDERS: ATTEND Internal Medicine Interventional Cardiology
DX: E78.2 Mixed hyperlipidemia (principal); I50.9 Heart failure, unspecified
CPT/HCPCS: 36415; 80053; 80061; 83880; 84443

== ENCOUNTER → 2024-12-01 | Outpatient (CLI) | payer MEDICARE, BC, OTHER ==
[2024-12-01 19:09] LABS: Blood Urea Nitrogen 14.3 mg/dL (9.0-27.0)
[2024-12-01 19:10] LABS: Carbon Dioxide 29.7 mmol/L (21.6-31.8); Chloride 101 mmol/L (96-109); Potassium 4.5 mmol/L (3.5-5.5); Sodium 143 mmol/L (135-145)
== END | disposition home or self-care (01) ==
LOC: LABWHC1 12:02
PROVIDERS: ATTEND Internal Medicine Interventional Cardiology
DX: I42.8 Other cardiomyopathies (principal)
CPT/HCPCS: 36415; 80051; 82565; 84520

== ENCOUNTER 2024-12-08 05:38 | Day surgery (SDC) | payer MEDICARE, BC, OTHER ==
[2024-12-06 17:26] VITALS: BMI 27.5
[2024-12-08] MEDS ORDERED: NITROGLYCERIN SL TABS 0.4 MG TAB SUBLINGUAL PRN (06:01)
[2024-12-08] MEDS ORDERED: ALPRAZolam 0.5 MG TAB PO PRN (06:01)
[2024-12-08] MEDS ORDERED: fentaNYL (PF) 50 MCG/ML 5 ML AMP IVP PRN (06:01)
[2024-12-08] MEDS ORDERED: ALPRAZolam 0.25 MG TAB PO PRN (06:01)
[2024-12-08] MEDS ORDERED: BENZOCAINE SPRAY 1 EACH MM SCH (06:01)
[2024-12-08] MEDS ORDERED: MIDAZOLAM 2 MG/2 ML VIAL IV PRN (06:01)
[2024-12-08 06:50] LABS: Basophils % (A) 1 %; Eosinophils # (A) 0.3 k/uL (0-0.7); Eosinophils % (A) 4 %; HCT 45.6 % (34.0-46.0); HGB 14.8 gm/dL (11.4-16.0); Lymphocytes # (A) 1.6 k/uL (1.0-4.8); Lymphocytes % (A) 25 %; MCH 29.9 pg (25.0-35.0); MCHC 32.4 g/dL (31.0-37.0); MCV 92.2 fL (80.0-100.0); Mean Platelet Volume 7.6; Monocytes # (A) 0.4 k/uL (0-1.0); Monocytes % (A) 6 %; Neutrophils # (A) 4.2 k/uL (1.3-7.7); Neutrophils % (A) 64 %; Platelet Count 216 k/uL (150-450); RBC 4.94 m/uL (3.80-5.40); RDW 13.1 % (11.5-15.5); WBC 6.6 k/uL (3.8-10.6)
[2024-12-08 07:00] VITALS: RESP 16; TEMP 98.4
[2024-12-08] MEDS: IV FLUID CONTINUATION 1,000 ML IV ONE ×2 (07:00→07:55)
[2024-12-08] MEDS: ATORVASTATIN 80 MG TAB PO STA (07:06)
[2024-12-08] MEDS: ASPIRIN 325 MG TAB PO STA (07:06)
[2024-12-08] MEDS: EMPTY BAG 1 BAG with SODIUM CHLORIDE 0.9% 1,000 ML IV ONE (07:10)
[2024-12-08] MEDS: BENZOCAINE SPRAY 1 EACH MUCOUS MEM ONE ×2 (07:50→07:54)
[2024-12-08] MEDS: MIDAZOLAM 2 MG/2 ML VIAL IVP ONE ×2 (07:54→07:57)
[2024-12-08] MEDS: fentaNYL (PF) 50 MCG/1 ML VIAL IVP ONE (07:54)
--- NOTE | 2024-12-08 08:07 | P.PCN ---
Date of Procedure: 12/08/24 Description of Procedure: Indication: Mitral regurgitation Procedure Description: After explaining the procedure to the patient, it's risk and complications, blood pressure, heart rate and O2 saturation were monitored. The throat was sprayed with Cetacaine. Patient received 2 mg intravenous Versed, 50 mcg intravenous fentanyl. The probe was introduced into the esophagus without difficulty. Images were obtained. Following that, the probe was removed. There was no immediate complication. Findings: Left atrial size is dilated, left atrial appendage is normal. Left ventricular systolic function is severely impaired with global hypokinesis, estimated ejection fraction 25 to 30%. The left ventricle is severely dilated. The aortic valve revealed mild thickening with preserved opening. The mitral valve leaflets are thickened and mildly calcified. Tricuspid valve appears to be normal. Descending thoracic aorta appears to be normal. Contrast bubble study revealed no shunting across the interatrial septum with Valsalva maneuver. No pericardial effusion was noted. Doppler: Pulse wave and color Doppler were obtained, and revealed severe mitral regurgitation with mild tricuspid regurgitation, there was no shunting by color Doppler study Conclusion: 1. Dilated left atrium with normal appearance of the left atrial appendage 2. Dilated left ventricle with severe global hypokinesis 3. Severe mitral regurgitation 4. Mild tricuspid regurgitation 5. No shunting across the interatrial septum Duration of sedation: 15 minutes
[2024-12-08] MEDS: LIDOCAINE 1% INJ 10MG/ML (20 ML MDV) SQ ONE (08:15)
[2024-12-08] MEDS: VERAPAMIL SYRINGE (5 MG/10 ML) INTRAARTER ONE (08:16)
[2024-12-08] MEDS: HEPARIN SODIUM,PORCINE 10,000 UNIT in SODIUM CHLORIDE 0.9% 1,000 ML IRRIGATION PRN (08:27)
[2024-12-08] MEDS: HEPARIN SODIUM,PORCINE (1 ML) 2,500 UNIT in SODIUM CHLORIDE 0.9% 250 ML IRRIGATION PRN (08:28)
[2024-12-08] MEDS: HEPARIN SODIUM 1,000 UN/ML (10ML VL) IV ONE (08:36)
[2024-12-08] MEDS: IOPAMIDOL-370 100ML BTL INJ ONE (08:40)
[2024-12-08 08:43] LABS: O2 Sat Blood Gas 69.6 %
[2024-12-08 08:46] LABS: O2 Sat Blood Gas 96.2 %
[2024-12-08 08:48] LABS: O2 Sat Blood Gas 71.6 %
[2024-12-08] MEDS ORDERED: RX INFO: IV CONTRAST WAS GIVEN 1 EACH MISC MISCELLANE PRN (08:51)
--- NOTE | 2024-12-08 08:59 | P.CARDCATH ---
Date of Procedure: 12/08/24 Description of Procedure: Cardiac Catheterization: The patient is a 69-year-old female with history of hyperlipidemia chronic tobacco use who presented with symptoms of progressive dyspnea and was found to have severe cardiomyopathy and evidence of significant mitral regurgitation. Recommendations were made regarding cardiac catheterization, the risks and the complications were discussed with the patient who is in full understanding and agreement. Procedure Description: Patient was brought to prosthetics lab technician in fasting semi-sedated state after receiving Fentanyl and Benadryl achieiving moderate conscious sedated state. Using Xylocaine Anesthesia and modified Seldinger technique, a 6-Tunisian sheath was int roduced in the right radial artery . The right intravenous access catheter in the right basilic vein was exchanged using guidewire exchange technique to a 6 Tunisian sheath. Right heart catheterization was performed using [place]-Ven[place] catheter, multiple samples and pressures were calculated. Cardiac output by thermodilution was calculated. Subsequently, selective coronary angiography was performed using a 5-Tunisian 3.5 bend Leonard catheter. Multiple views of the coronary artery including hemiaxial views were obtained. The right Leonard catheter was used to cross the aortic valve and LVEDP was calculated. Following that, catheter and sheath were removed. Hemostasis was obtained with deployment of vascular band . There was no immediate complication. Patient was returned to room in stable condition. Of note, the patient received a total of 4000 units of intravenous heparin as well as intra-arterial verapamil. Findings: Fluoroscopy: Calcification of the LAD and left main was noted Left main: This is a large size vessel, bifurcating into left circumflex and LAD, left main has no evidence of high-grade stenosis LAD: This is a large size vessel, reaching to the apex with a wraparound apex segment giving rise to 3 diagonal branch, the second 1 is large in caliber. The proximal and mid LAD is heavily calcified and has diffuse intimal disease of 20 to 30% with no high-grade stenosis Left circumflex: This is a nondominant vessel, large in caliber, giving rise to a large obtuse marginal branch that has no evidence of high-grade stenosis RCA: This is a large dominant vessel, bifurcating into PDA and PLV, the right coronary artery and its branches have no evidence of obstructive disease. Left Ventriculogram: Not performed Hemodynamics: Pulmonary artery systolic pressure of 60, diastolic of 28 with a mean of 42 mmHg, pulmonary capillary wedge pressure A-wave of 36, V wave of 50 to with a mean of 35 mmHg, right ventricular systolic pressure of 60 with an end-diastolic pressure of 12 mmHg. Right ventricular systolic pressure A-wave of 14, V wave of 12 with a mean of 10 mmHg. Left ventricular end-diastolic pressure 28 to 30 mmHg., Cardiac output by thermodilution of 4.4 L with an index of 2.4 L/min/m. Right atrial saturation 70% pulmonary artery saturation 72% arterial saturation 96%. Cardiac output by Esteban 4.9 L/min with an index of 2.7 L/min/m. Conclusion: 1. Calcified LAD 2. Mild disease in the proximal and mid LAD 3. Moderate severe pulmonary hypertension 4. Elevated LVEDP Recommendations: The patient will continue on maximizing her medical therapy and evaluated for the need to undergo intervention on her mitral valve. The importance of smoking and alcohol cessation was discussed with her. The findings and the recommendations were discussed with the patient and the family and they were in full understanding and agreement. Duration of sedation is 30 minutes.
[2024-12-08] MEDS ORDERED: METOPROLOL SUCCINATE (ER) 25 MG TAB.ER.24H PO SCH (09:00)
[2024-12-08] MEDS: SODIUM CHLORIDE 0.9% 1,000 ML IV SCH (09:00)
[2024-12-08] MEDS ORDERED: RAMIPRIL 5 MG PO SCH (09:00)
[2024-12-08] MEDS ORDERED: NON FORMULARY DRUG (Aspirin [Adult Low Dose Aspirin Ec] 81 MG Tablet) PO SCH (09:00)
[2024-12-08] MEDS ORDERED: NON FORMULARY DRUG (Rosuvastatin 20 MG Tablet) PO SCH (09:00)
[2024-12-08 09:55] VITALS: PULSE 84
[2024-12-08 11:57] VITALS: BP 124/72
== END 2024-12-08 12:19 | disposition home or self-care (01) ==
LOC: CATHCVL 05:38
PROVIDERS: ATTEND Internal Medicine Interventional Cardiology
DX: I08.1 Rheumatic disorders of both mitral and tricuspid valves (principal); I27.20 Pulmonary hypertension, unspecified; I25.10 Atherosclerotic heart disease of native coronary artery without angina pectoris; E78.5 Hyperlipidemia, unspecified; Z79.82 Long term (current) use of aspirin; Z87.891 Personal history of nicotine dependence; I50.22 Chronic systolic (congestive) heart failure
CPT/HCPCS: 93312; 93320; 93325; 93460; 85018; 82810; 85025; C1894; C1751; C1769; J2250; J1644 ×3; J2003; Q9967; J3010

== ENCOUNTER → 2025-01-23 | Outpatient (CLI) | payer MEDICARE, BC, OTHER ==
--- NOTE | 2025-01-23 11:41 | MM ---
Reason for Exam: Clinical finding. Last screening mammogram was performed 11 month(s) ago. Indicated Problems: Lump or thickening of the right side for 2 Week(s). Patient History: Menarche at age 11. Patient has no children. Postmenopausal. Breast cancer, right, age 53. Estrogen for 9 years, 2 months, from age 44 until age 53. Progesterone for 9 years, 2 months, from age 44 until age 53. 05/11/2009, Malignant Excisional Biopsy on the right side. 04/30/2009, Malignant Core Biopsy on the right side. 12/24/1998, Benign Stereotactic Core Biopsy on the left side. 2008, Radiation Therapy on the right side. Paternal aunt had breast cancer at or over age 50. Prior Study Comparison: 08/27/1994 Screening Mammogram, Unknown. 02/11/1996 Screening Mammogram, Unknown. 05/29/2015 Bilateral Diagnostic Mammogram, [facility]. 06/03/2016 Bilateral Diagnostic Mammogram, [facility]. 06/18/2017 Bilateral Diagnostic Mammogram, [facility]. 06/18/2017 Right Diagnostic Ultrasound, [facility]. 01/06/2018 Right Diagnostic Ultrasound, [facility]. 01/22/2018 Bilateral Diagnostic Mammogram, [facility]. 01/28/2019 Bilateral Diagnostic Mammogram, [facility]. 02/01/2020 Bilateral Diagnostic Mammogram, [facility]. 02/05/2021 Bilateral Diagnostic Mammogram, [facility]. 02/06/2022 Bilateral MG 3D screening mammo w/cad, [facility]. 02/09/2023 Bilateral MG 3D screening mammo w/cad, [facility]. 02/25/2023 Right MG 3D diag mammo w/cad RT, [facility]. 02/26/2023 Right US breast RT, [facility]. 03/04/2024 Bilateral MG 3D diag mammo w/cad DASIY, [facility]. Tissue Density: There are scattered areas of fibroglandular density. Findings: Analyzed By CAD. Palpable area correlates to the previous surgical site with calcifications and surgical clips. No new suspicious masses, calcifications or distortions. Overall Assessment: Benign, BI-RAD 2 Management: Screening Mammogram of both breasts in 1 year. Results were given to the patient verbally at the time of exam. Patient should continue monthly self-breast exams. A clinical breast exam by your physician is recommended on an annual basis. This exam should not preclude additional follow-up of suspicious palpable abnormalities. Note on Sri scores and lifetime risk: 1. A Sri score greater than 3% is considered moderate risk. If this is the case, consider specialist referral to assess eligibility for a risk reducing agent. 2. If overall lifetime risk for the development of breast cancer is 20% or higher, the patient may qualify for future screening with alternating mammogram and breast MRI. [facility], , 01/23/2025 11:33 AM. Electronically signed and approved by: Fran Rider DO
== END | disposition home or self-care (01) ==
LOC: RADMAMWWP 10:57
PROVIDERS: ATTEND Family Medicine
DX: R92.333 Mammographic heterogeneous density, bilateral breasts (principal); Z78.0 Asymptomatic menopausal state; Z85.3 Personal history of malignant neoplasm of breast
CPT/HCPCS: 77066; G0279; 77062

== ENCOUNTER → 2025-01-25 | Outpatient (CLI) | payer MEDICARE, BC, OTHER ==
[2025-01-25 10:43] LABS: ALT 28 U/L (8-44); AST 26 U/L (13-35); Albumin 4.6 g/dL (3.8-4.9); Albumin/Globulin Ratio 1.84 Ratio (1.60-3.17); Alkaline Phosphatase 45 U/L (41-126); BUN/Creat Ratio 19.25 Ratio (12.00-20.00); Blood Urea Nitrogen 15.4 mg/dL (9.0-27.0); Calcium 9.9 mg/dL (8.7-10.3); Carbon Dioxide 29.3 mmol/L (21.6-31.8); Chloride 100 mmol/L (96-109); Chol/HDL Ratio 2.03 Ratio; Globulin 2.5 g/dL (1.6-3.3); Glucose 110 mg/dL (70-110); LDL Cholesterol,Calculated 60.1 mg/dL (0.0-131.0); Potassium 4.2 mmol/L (3.5-5.5); Sodium 140 mmol/L (135-145); Total Bilirubin 1.2 mg/dL (0.3-1.2); Total Protein 7.1 g/dL (6.2-8.2); VLDL Calculation 17.24 mg/dL (5.00-40.00)
[2025-01-25 11:34] LABS: NT-Pro-B-Type Natriuretic Pept 828 pg/mL (0-125)
== END | disposition home or self-care (01) ==
LOC: LABWHC1 07:27
PROVIDERS: ATTEND Internal Medicine Interventional Cardiology
DX: I50.22 Chronic systolic (congestive) heart failure (principal); E78.2 Mixed hyperlipidemia
CPT/HCPCS: 36415; 80053; 80061; 83880